=== PATIENT | female | born 1965 | race Caucasian/White ===

== ENCOUNTER → 2017-09-22 | Outpatient (CLI) | payer BC ==
[~2017-09-22] MED LIST: /AMLO25TA OR; /FENO48TA OR; ACET500C OR; ALLERGY MED OTC OR; ASPI1TAB PO; BACL10TA2 OR; DEPA500T OR; FISH300C2; FOLI1TAB OR; IBUP800T; LEVOTAB10 PO; LIDO5DIS TD; LOVA20TA2 PO; MONT10TA2 PO; NEUR100C OR; NORT10CA2 OR; PANT40TA2 PO; PARO20TA3 PO; PRIL20CA OR; RED YEAST RICE OR; SYNT150T OR; TRAM50TA2 OR; VITA200038 PO; WELCHOL OR
--- NOTE | 2017-09-22 12:59 | REP ---
BILATERAL MAMMOGRAM: COMPARISON: 01/03/2016 as well as multiple other prior studies. Family history of breast cancer in paternal grandmother. History of prior benign stereotactic biopsy 02/07/2016. Breast parenchyma is heterogeneously dense, limiting the sensitivity of the mammogram. There does appear to be a new 6-7 mm round nodule in the lateral left retroareolar region. Margins appear fairly smooth and well-defined. No other new mass is seen bilaterally. No clustered microcalcifications are seen bilaterally. IMPRESSION: BI-RADS/ACR category 0 mammogram, incomplete. Additional imaging and/or prior mammograms for comparison. Suspect new 6-7 mm nodule left lateral retroareolar region. Recommend spot compression views and ultrasound to further evaluate. Also using the Tyrer-Cuzick risk model, patient's life-time risk for breast cancer is 33.2%. Given the patient's heterogeneously dense breasts, I would strongly recommend supplemental MRI screening of the breasts. This mammogram was interpreted with the aid of an FDA-approved computer-aided detection system. A. Negative x-ray reports should not delay biopsy if a dominant or clinically suspicious mass is present. B. Four to eight percent of cancers are not identified by x-ray. C. Adenosis and dense breasts may obscure an underlying neoplasm. The patient states she/he had a clinical breast exam in September 2017. The patient letter being requested is M0.
== END ==
LOC: M WHC 10:41
PROVIDERS: ATTEND Nurse Practitioner Family
DX: Z12.31 Encounter for screening mammogram for malignant neoplasm of breast (principal); R92.8 Other abnormal and inconclusive findings on diagnostic imaging of breast

== ENCOUNTER → 2017-09-30 | Outpatient (CLI) | payer BC ==
--- NOTE | 2017-09-30 11:07 | REP ---
Digital diagnostic unilateral left breast mammography with CAD and focused left breast sonography: History: Screening mammography from September 22, 2017 BI-RADS category 0 because of a 6-7 mm nodular density laterally and retro areolarly the in the left breast. Diagnostic imaging was recommended. Patient with elevated lifetime breast cancer risk assessment by Tyrer-Cuzick risk model of 33%. Comparison is also made with January 03, 2016 prior mammography. Mammographic findings: Breast parenchyma is heterogeneously somewhat dense in a pattern which may inhibit the sensitivity of mammography. Nodularity persists in the retroareolar region of the left breast laterally on today's magnified focal spot compression CC, true ML, and MLO views. No spiculation or architectural distortion is seen. No worrisome skin changes seen. No suspicious microcalcification is observed. Sonographic findings: The left breast is scanned from 12 o'clock to 3 o'clock in the superior medial aspect in a retroareolar fashion. There is a band of heterogeneous fibroglandular background echotexture containing some dilated ducts. At 2 o'clock there is a 3 mm cyst. No mass lesion is seen. No architectural distortion or acoustic shadowing is observed. Impression: BI-RADS/ACR category 2 mammogram. Benign finding(s). Routine annual screening mammography (for women over age 40). BI-RADS category 2 benign left breast imaging. Annual screening mammography is recommended. In addition, because of the elevated lifetime risk assessment, this patient should undergo annual screening breast MRI scanning. MRI and mammography can be offset at 6-month intervals. This mammogram was interpreted with the aid of an FDA-approved computer-aided detection system. The patient states she/he had a clinical breast exam in September 2017. The patient letter being requested is m1 dense. Signed by Napoleon Dawn MD 09/30/2017 11:20 A
== END ==
LOC: M RAD 09:38
PROVIDERS: ATTEND Nurse Practitioner Family
DX: R92.8 Other abnormal and inconclusive findings on diagnostic imaging of breast (principal)

== ENCOUNTER → 2018-09-28 | Outpatient (REF) | payer BC | LOC: M SFHCWAGY 10:31 | DX: Z12.4 Encounter for screening for malignant neoplasm of cervix (principal) | CPT/HCPCS: G0123 ==

== ENCOUNTER → 2018-09-28 | Outpatient (CLI) | payer BC | LOC: M WHC 10:07 | DX: Z12.31 Encounter for screening mammogram for malignant neoplasm of breast (principal); Z80.3 Family history of malignant neoplasm of breast; N60.31 Fibrosclerosis of right breast; N60.32 Fibrosclerosis of left breast | CPT/HCPCS: 77067 ==

== ENCOUNTER → 2019-12-15 | Outpatient (CLI) | payer BC ==
[~2019-12-15] MED LIST changes: -/AMLO25TA OR; -/FENO48TA OR; -ASPI1TAB PO; +ASPI81TA26 PO; -MONT10TA2 PO; +MONT10TA4 PO; +NORV2TAB OR; -PANT40TA2 PO; +PANT40TA3 PO; +TRIC1TAB OR
--- NOTE | 2019-12-16 08:00 | REPMRS ---
Patient History The patient states she had a clinical breast exam in December 2019.Family history of breast cancer at age 50 or over in paternal grandmother. Benign radio exam breast specimen of the right breast, February 07, 2016. Benign stereotatic loc for ea lesion of the right breast, February 07, 2016. No Hormone Replacement Therapy Digital Woman Screen Mammo: December 15, 2019 - Exam #: [id number] Bilateral CC and MLO view(s) were taken. Technologist: Sandhya Rudd, Technologist Prior study comparison: September 28, 2018, bilateral digital woman screen mammo performed at [facility]. September 22, 2017, digital woman screen mammo performed at [facility]. August 19, 2016, right breast digital mammo diagnostic unilateral, performed at [facility]. FINDINGS: The breast tissue is heterogeneously dense. This may lower the sensitivity of mammography. There is a moderate amount of heterogeneously dense fibroglandular tissue which is fairly symmetric. There is no interval development of dominant mass, architectural distortion, or grouped microcalcification typical of malignancy. There has been no change in the appearance of the mammogram from the prior studies. 3-D tomosynthesis shows no additional findings. Assessment: BI-RADS/ACR category 1 mammogram. Negative Mammogram. Recommendation Routine screening mammogram of both breasts in 1 year (for women over age 40). This patient's Lifetime Breast Cancer RIsk is estimated at 17.6 %. This mammogram was interpreted with the aid of an FDA-approved computer-aided dectection system. Electronically Signed By: Ej Dawn MD 12/16/19 0800
== END ==
LOC: M WHC 15:12
PROVIDERS: ATTEND Nurse Practitioner Family
DX: Z12.31 Encounter for screening mammogram for malignant neoplasm of breast (principal); Z80.3 Family history of malignant neoplasm of breast

== ENCOUNTER → 2020-01-03 | Outpatient (CLI) | payer BC ==
--- NOTE | 2020-01-03 17:49 | REP ---
Pelvic sonography: History: Pelvic pain. Comparison pelvic sonography December 03, 2015. Findings: Transabdominal and transvaginal scanning are performed. Uterine dimensions are normal measured at 6.2 x 2.9 x 3.3 cm. Endometrial echo is 0.3 cm thick. Uterine texture is somewhat heterogeneous. No focal uterine mass is seen. There is evidence of a section uterine scar, unchanged. No free fluid is seen. Normal ovaries are seen. Right ovarian dimensions are 1.4 x 1.0 x 1.1 cm. Left ovary measures 1.8 x 0.9 x 1.4 cm. Impression: Post scar lower uterine segment. Otherwise no morphologic abnormality seen.
== END ==
LOC: M WHC 14:38
PROVIDERS: ATTEND Nurse Practitioner Family
DX: R10.2 Pelvic and perineal pain (principal)

== ENCOUNTER → 2020-08-07 | Outpatient (CLI) | payer BC ==
[~2020-08-07] MED LIST changes: +PANT40TA29 PO; -PANT40TA3 PO
--- NOTE | 2020-08-07 11:50 | ECWPNPC ---
PATIENT NAME: CEASAR DE LEON : 1965 GENDER: FEMALE VISIT DATE: 08/07/2020 DISCHARGE DATE: 08/07/20 1003 VISIT LOCKED DATE TIME: PHYSICIAN: DANITZA ACOSTA RESOURCE: DANITZA ACOSTA REASON FOR APPOINTMENT 1. THORACIC/LUMBAR PAIN HISTORY OF PRESENT ILLNESS DEPRESSION SCREENING: PHQ-9 LITTLE INTEREST OR PLEASURE IN DOING THINGSSEVERAL DAYS FEELING DOWN, DEPRESSED, OR HOPELESSSEVERAL DAYS TROUBLE FALLING OR STAYING ASLEEP, OR SLEEPING TOO MUCHNEARLY EVERY DAY FEELING TIRED OR HAVING LITTLE ENERGYNEARLY EVERY DAY POOR APPETITE OR OVEREATING NEARLY EVERY DAY FEELING BAD ABOUT YOURSELF-OR THAT YOU ARE A FAILURE OR HAVE LET YOURSELF OR YOUR FAMILY DOWN NOT AT ALL TROUBLE CONCENTRATING ON THINGS, SUCH READING THE NEWSPAPER OR WATCHING TELEVISION NEARLY EVERY DAY MOVING OR SPEAKING SO SLOWLY THAT OTHER PEOPLE COULD HAVE NOTICED. OR THE OPPOSITE- BEING SO FIDGETY OR RESTLESS THAT YOU HAVE BEEN MOVING AROUND A LOT MORE THAN USUALNOT AT ALL THOUGHTS THAT YOU WOULD BE BETTER OFF , OR OF HURTING YOURSELF IN SOME WAY?NOT AT ALL TOTAL SCORE:14 INTERPRETATIONMODERATE DEPRESSION PHQ-2 (2015 EDITION) LITTLE INTEREST OR PLEASURE IN DOING THINGS?NEARLY EVERY DAY FEELING DOWN, DEPRESSED, OR HOPELESS?MORE THAN HALF THE DAYS TOTAL SCORE5 GENERAL: 54 Y/O FEMALE WITH LONG HISTORY OF CHRONIC LOW BACK PAIN.PAIN HAS INCREASED OVER THE PAST FEW YEARS.HAS BENEFITED FROM [facility] IN PAST.LAST INJECTION WAS SEVERAL YEARS AGO.PAIN IS AGGREVATED WITH PROLONGED STANDING AND RELIEVED SOMEWHAT WITH REST AND HEAT.RATING PAIN VAS 8/10.DENIES ANY INJURIES.REVIEWED MRI L/S SPINE AND DISCUSSED TREATMENT OPTIONS. - - - - - - - -. FALL RISK SCREENING: SCREENING :NO FALLS REPORTED IN THE LAST YEAR PAIN SCREENING: PATIENT HAS A COMPLAINT OF ACUTE OR CHRONIC PAIN :NO NURSING NOTE: - - - - - - - -. PAIN CENTER INTAKE QUESTIONS: DO YOU HAVE A HISTORY OF MRSA? :NO DO YOU TAKE A BLOOD THINNERS? :NO DO YOU HAVE ANY BLEEDING DISORDERS? :NO ANY NEW NUMBNESS OR WEAKNESS IN YOUR LEGS OR ARMS? :NO ANY PACEMAKER,DEFIBRILLATOR, OR DORSAL COLUMN STIMULATOR? :NO DO YOU HAVE ANY RASHES OR OPEN SORES? :NO ARE YOU ALLERGIC TO IV DYE? :NO ARE YOU DIABETIC? :NO ANY NEW PROBLEMS WITH YOUR MEDICATIONS? :NO HAVE YOU RECEIVED A VACCINE IN THE PAST 30 DAYS? :NO DO YOU PLAN TO RECEIVE A VACCINE IN THE NEXT 21 DAYS? :YES IF SO WHAT VACCINE AND WHEN? FLU VACCINE DO YOU NEED ANY PRESCRIPTION? :NO DO YOU TAKE ANY IMMUNOSUPPRESSIVE MEDICATIONS? :NO CURRENT MEDICATIONS TAKING VITAMIN D 2000 UNIT TABLET OTC 1 TAB(S) ORALLY ONCE A DAY TAKING ACETAMINOPHEN 500 MG CAPSULE 1 CAPSULE NEEDED ORALLY NEEDED TAKING LEVOTHYROXINE SODIUM 100 MCG TABLET 1 TABLET EVERY MORNING ON AN EMPTY STOMACH ORALLY ONCE A DAY TAKING SYMBICORT 160-4.5 MCG/ACT AEROSOL 2 PUFFS INHALATION TWICE A DAY TAKING LOVASTATIN 40 MG TABLET 1 TABLET WITH A MEAL ORALLY ONCE A DAY TAKING PAROXETINE HCL 20 MG TABLET 1 TABLET IN THE MORNING ORALLY ONCE A DAY TAKING LEVOCETIRIZINE DIHYDROCHLORIDE 5 MG TABLET 1 TABLET IN THE EVENING ORALLY ONCE A DAY TAKING ASPIR-81 81 MG TABLET DELAYED RELEASE 1 TABLET ORALLY ONCE A DAY TAKING SPIRIVA HANDIHALER 18 MCG CAPSULE 1 CAPSULE BY INHALING THE CONTENTS OF THE CAPSULE USING THE HANDIHALER DEVICE INHALATION ONCE A DAY TAKING PANTOPRAZOLE SODIUM 40 MG TABLET DELAYED RELEASE 1 TABLET ORALLY BID TAKING ROPINIROLE HCL 0.25 MG TABLET 1 TABLET 1 TO 3 HOURS BEFORE BEDTIME ORALLY BID TAKING MELOXICAM 7.5 MG TABLET 1 TABLET ORALLY BID TAKING FOLIC ACID 1 MG TABLET 1 TABLET ORALLY ONCE A DAY NOT-TAKING SINGULAIR 10 MG TABLET 1 TAB(S) P.O. ONCE A DAY NOT-TAKING AMLODIPINE 2.5MG TABLET 1 TABLET ORAL ONCE A DAY NOT-TAKING CLEOCIN 2 % CREAM 1 APPLICATION AT BEDTIME VAGINAL TWICE A WEEK NOT-TAKING METRONIDAZOLE 500 MG TABLET 1 TABLET ORALLY BID NOT-TAKING CALCIUM 600 + D 600-400 MG-UNIT TABLET OTC 1 TABLET ORALLY ONCE A DAY NOT-TAKING LIDOCAINE 5 % PATCH 1 PATCH TO INTACT SKIN REMOVE AFTER 12 HOURS EXTERNALLY THREE TIMES A DAY NEEDED NOT-TAKING NABUMETONE 750 MG TABLET 1 TABLET ORALLY NEEDED NOT-TAKING LEXAPRO 10 20 MG TABLET 1 TAB(S) P.O. ONCE A DAY NOT-TAKING CLINDAMYCIN 300 MG 10D 300 MG TABLETS ONE TAB ORALLY TWICE A DAY NOT-TAKING DIFLUCAN 150 MG TABLET 1 TABLET ORALLY TAKE ONE AT START OF ANTIBIOTICS, MAY REPEAT 1 WK PRN NOT-TAKING SYDNI 180 MG TABLET 1 TAB(S) P.O. ONCE A DAY NOT-TAKING ADVAIR DISKUS 250-50 MCG/DOSE MISCELLANEOUS 1 PUFF INHALATION TWICE A DAY MEDICATION LIST REVIEWED AND RECONCILED WITH THE PATIENT PAST MEDICAL HISTORY HYPERCHOLESTEROLEMIA MIGRAINE HEADACHES HYPOTHYROIDISM ESOPHAGEAL REFLUX IRRITABLE BOWEL SYNDROME SCABIES 08/14 HX BLOOD CLOTS IN LEGS ANXIETY PERIMENOPAUSE FIBROCYSTIC BREAST DISEASE AAA 07/16 RECURRENT BV EMB 01/09/16 FOR AUB NORMAL ALLERGIES SULFA (FOR ALLERGY USE ONLY): RASH, ITCHING - ALLERGY SURGICAL HISTORY C SECTION 1992 TUBAL LIGATION 1995 CHOLECYSTECTOMY 01/1999 CARPAL TUNNEL RELEASE (RIGHT) D&C DUE TO MENORRHAGIA 06/2007 D&C AND HYSTEROSCOPY 06/2009 ANGIOPLASTY 2005 EGD/COLONOSCOPY (REINDL), POLYPS REMOVED, GERD, IBS DUE 2019 MESMENTIC BYPASS-ABDOMINAL AORTIC ANEURYSM REPAIR 07/10/2014 NECK SURGERY FUSION ORIF 2016 FAMILY HISTORY FATHER: 47 YRS, LUNG CANCER MOTHER: 80 YRS, LEUKOPENIA, DM, CML SIBLINGS: 42 YRS, BROTHER- OF STOMACH CANCER. ANOTHER BROTHER-BRAIN AND LUNG CANCER. TWO OTHER BROTHERS-COPD. ONE SISTER-LUNG CANCER W/METS TO BRAIN. TWO OTHER SISTERS-THYROID DISEASE. SISTER WITH ENDOMETRIAL CANCER AT 23 /REMAINING BROTHER, NO KNOWN MEDICAL PROBLEMS DAUGHTER(S): ALIVE, AGES 22,19 PATERNAL GRAND FATHER: PATERNAL GRAND MOTHER: , BREAST CANCER 5 BROTHER(S) , 3 SISTER(S) . 2DAUGHTER(S) - HEALTHY. DENIES COLON OR OVARIAN CANCERS. PGM, MGA BOTH , BREAST CANCER.2 BROTHERS , 1 SISTER . SOCIAL HISTORY GENERAL: TOBACCO USE ARE YOU A:CURRENT SMOKER ARE YOU INTERESTED IN QUITTING?NOT READY TO QUIT COUNSELED THE PATIENT ON SMOKING EFFECTS, EDUCATION [id number]/2020 HOW MANY CIGARETTES A DAY DO YOU SMOKE?11-20 HOW SOON AFTER YOU WAKE UP DO YOU SMOKE YOUR FIRST CIGARETTE?WITHIN 5 MIN HOW OFTEN DO YOU SMOKE CIGARETTES?EVERY DAY PATIENT COUNSELED ON THE DANGERS OF TOBACCO USE AND URGED TO QUIT:08/06/2020 LATEX QUESTIONNAIRE LATEX ALLERGY : HAVE YOU EVER DEVELOPED ANY TYPE OF REACTION AFTER HANDLING LATEX PRODUCTS SUCH RUBBER GLOVES, CONDOMS, DIAPHRAGMS, BALLOONS, SOCKS, OR UNDERWEAR?NO LATEX ALLERGY : HAVE YOU EVER DEVELOPED ANY TYPE OF REACTION DURING OR AFTER DENTAL APPOINTMENT, VAGINAL/RECTAL EXAMINATION, SURGICAL PROCEDURE, OR ANY OTHER EXPOSURE?NO LATEX RISK : HAVE YOU EVER HAD ANY DIFFICULTY BREATHING OR HIVES AFTER EATING OR HANDLING ANY FRUITS, OR VEGETABLES; SUCH KIWI, BANANAS, STONE FRUITS, OR CHESTNUTSNO LATEX RISK : DO YOU HAVE A PREVIOUS PERSONAL HISTORY OF MORE THAN NINE SURGERIES, SPINA BIFIDA, OR REPEATED CATHERIZATIONS? NO LATEX RISK : ARE YOU FREQUENTLY EXPOSED TO LATEX PRODUCTS IN YOUR OCCUPATION?NO DATE ASKED : 08/06/2020 ALCOHOL SCREENING DID YOU HAVE A DRINK CONTAINING ALCOHOL IN THE PAST YEAR?YES HOW OFTEN DID YOU HAVE A DRINK CONTAINING ALCOHOL IN THE PAST YEAR?TWO TO FOUR TIMES A MONTH (2 POINTS) HOW MANY DRINKS DID YOU HAVE ON A TYPICAL DAY WHEN YOU WERE DRINKING IN THE PAST YEAR?5 OR 6 (2 POINTS) HOW OFTEN DID YOU HAVE SIX OR MORE DRINKS ON ONE OCCASION IN THE PAST YEAR?LESS THAN MONTHLY (1 POINT) POINTS5 INTERPRETATIONPOSITIVE RECREATIONAL DRUG USE DENIES. CAFFEINE 5-6/DAY. HIV / HEP-C SCREENING HIV TEST OFFERED TO PATIENT:YES DATE OFFERED:09/22/2017 TEST ACCEPTED:NO HEP-C TEST OFFERED TO PATIENT:NO REASON:PATIENT DECLINED ALEVISM [id number] CONGREGATIONAL LANGUAGE LANGUAGES SPOKEN:CROATIAN EDUCATION LEVEL OF EDUCATION:HIGH SCHOOL GED LEARNING BARRIERS / SPECIAL NEEDS CHANGE FROM LAST VISIT?NO BARRIERS TO LEARNING?NO HEARING IMPAIRED?NO VISION IMPAIRED?YES COGNITIVELY IMPAIRED?NO :CORRECTIVE LENSES READINESS TO LEARN?YES LEARNING PREFERENCES?NO LEARNING CAPABILITIES PRESENT?YES EMOTIONAL BARRIERS?NO SPECIAL DEVICES?NO APPRENTICE PLANT ATTENDANT NEEDED?NO DOMESTIC VIOLENCE DENIES; 01/04/15 HITS SCORE=4. 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 DIET: REGULAR, NO EATING DISORDERS. EXERCISE: NO REGULAR EXERCISE. MARITAL STATUS: X 15 YRS, TOGETHER 24 YRS. OTHERS AT HOME: SPOUSE. HOSPITALIZATION/MAJOR DIAGNOSTIC PROCEDURE SURGERIES REVIEW OF SYSTEMS CONSTITUTIONAL: ANY RECENT FEVER NO, NO . CHILLS NO, NO . WEIGHT CHANGE OF UNKNOWN REASONS NO, NO . MUSCULOSKELETAL: ANY UNUSUAL JOINT PAIN OR SWELLING NOT MENTIONED NO, NO . SYSTEMIC LUPUS NO, NO . ANY NEUROMUSCULAR DISORDER NOT MENTIONED NO, NO . LYME DISEASE NO, NO . GASTROENTEROLOGY: ANY NEW CHANGE IN BOWEL CONTROL? NO, NO . HISTORY OF LIVER DISORDER NOT MENTIONED NO, NO . HISTORY OF UNUSUAL ABDOMINAL PAIN OR CRAMPING NOT MENTIONED NO, NO . NO CONSTIPATION. GENITOURINARY: ANY NEW CHANGE IN BLADDER CONTROL? NO, NO . ANY RENAL/KIDNEY CONDITON NOT MENTIONED NO, NO . NEUROLOGY: HISTORY OF TBI NOT MENTIONED NO, NO . OTHER NEW NUMBNESS OR PAIN PATTERNS NOT MENTIONED NO, NO . NEW ONSET DIZZINESS OR NEUROLOGICAL CHANGES NOT MENTIONED NO, NO . HISTORY OF SEVERE HEADACHES NOT MENTIONED NO, NO . HISTORY OF STROKE OR NEUROLOGICAL DISORDER NOT MENTIONED NO, NO . CARDIOLOGY: HEART SURGERY NO, NO . CONGESTIVE HEART FAILURE/FLUID OVERLOAD NOT MENTIONED NO, NO . HISTORY OF CHEST PAIN,IRREGULAR HEART BEAT NOT MENTIONED NO, NO . RESPIRATORY: SHORTNESS OF BREATH ON EXERTION, WHEEZES, UNUSUAL COUGH NOT MENTIONED NO, NO . ENDOCRINOLOGY: ADRENAL GLAND OR THYROID DISORDERS NOT MENTIONED NO, NO . UNUSUAL URINATION, DIZZINESS OR LETHARGY NOT MENTIONED NO, NO . VITAL SIGNS WT 159.8 LBS, HT 63.5 IN, BMI 27.86 INDEX, BP 123/60 MM HG, HR 84 /MIN, RR 18 /MIN, TEMP 97.5 F, OXYGEN SAT % 98%, NA INITIALS AW 0854. EXAMINATION GENERAL EXAMINATION: GENERAL AWAKE,ALERT ,PLEASANT . PSYCH AFFECT NORMAL . NECK: TRACHEA MIDLINE. NO CERVICAL OR SUPRACLAVICULAR LYMPHADENOPATHY NOTED. LUNGS: LUNG REYNOLDS ARE CLEAR TO AUSCULTATION BILATERALLY. GOOD MOVEMENT OF AIR . HEART: S1, S2 IN A REGULAR RATE AND RHYTHM. NO SIGNIFICANT MURMURS, RUBS OR GALLOPS NOTED . ABDOMEN: SOFT/NONTENDER. MUSCULOSKELETAL: MUSCLE STRENGTH TESTING 5/5 BILATERAL UPPER/LOWER EXTREMITIES. LUMBAR: PALPATION: NEGATIVE FOR PAIN OVER L/S SPINE. SMALL AMPOUNT OF PAIN RIGHT LOW BACK , TRIGGER POINTS:, ELICITED WITH PALPATION OVER MID THORACIC MUSCLES.. CERVICAL: NEGATIVE FOR PAIN WITH PALPATION OF CERVICAL SPINE. NEGATIVE FOR PAIN WITH PALPATION OF CERVICAL PARASPINALS. NEGATIVE FOR PAIN WITH PALPATION OF TRAPEZIUS BILAT. SKIN: NO RASH OR SKIN LESIONS. NEUROLOGIC EXAM: CN'S NORMAL TESTED , DTRS 1-2+ IN ALL 4 EXTREMITIES. DIAGNOSTIC TESTS REVIEWED MRI L/S SPINE-01/2020 MRI THORACIC SPINE-01/2020. 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 PROCEDURE CODES FA211 ESTABILISHED PATIENT CONGREGATION FACILITY CHARGE DISPOSITION & COMMUNICATION FOLLOW UP POST PROCEDURE (REASON: L4/5 LESI) ELECTRONICALLY SIGNED BY DEBORA ALY ON 08/07/2020 AT 11:48 AM EDT DISCLAIMER : THIS IS A VISIT SUMMARY EXTRACTED FROM THE [employer] CHART. IT IS NOT A COPY OF THE [employer] PROGRESS NOTE. [place]
== END ==
LOC: M PAIN 08:30
PROVIDERS: ATTEND Nurse Practitioner Family
DX: M51.26 Other intervertebral disc displacement, lumbar region (principal); M47.814 Spondylosis without myelopathy or radiculopathy, thoracic region; G89.29 Other chronic pain; E78.00 Pure hypercholesterolemia, unspecified; G43.909 Migraine, unspecified, not intractable, without status migrainosus; E03.9 Hypothyroidism, unspecified; K21.9 Gastro-esophageal reflux disease without esophagitis; F17.210 Nicotine dependence, cigarettes, uncomplicated; Z86.59 Personal history of other mental and behavioral disorders; Z88.2 Allergy status to sulfonamides; Z79.82 Long term (current) use of aspirin; Z79.899 Other long term (current) drug therapy

== ENCOUNTER → 2020-08-10 | Outpatient (CLI) | payer BC | LOC: M LABSMTC 13:04 | PROVIDERS: ATTEND Anesthesiology | DX: Z20.828 Contact with and (suspected) exposure to other viral communicable diseases (principal) | CPT/HCPCS: C9803; U0003 ==

== ENCOUNTER → 2020-08-15 | Outpatient (CLI) | payer BC ==
[~2020-08-15] MED LIST changes: +ISOVUE-M 300 61% 15ML VIAL As Ordered ONE; +LIDOCAINE 1% SDV 30ML VIAL As Ordered ONE; +diazePAM 5 MG TAB As Ordered ONE; +methylPREDNISolone SUSP 40MG/ML 1ML VIAL (DEPO MEDROL) As Ordered ONE; +oxyCODONE 5MG TAB As Ordered ONE
--- NOTE | 2020-08-15 15:16 | REP ---
INDICATION: LUMBAR EPIDURAL STEROID INJECTION pain. COMPARISON: No comparison study.. TECHNIQUE: . Three views. FINDINGS: A sequence of 3 last image hold fluoroscopically obtained spot radiographs of the lumbar spine document needle position and contrast injection associated with injection procedure. IMPRESSION: Procedural imaging lumbar spine. <Electronically signed by Ej Dawn > 08/15/20 [id number]
--- NOTE | 2020-08-16 23:29 | ECWPNPC ---
PATIENT NAME: CEASAR DE LEON : 1965 GENDER: FEMALE VISIT DATE: 08/15/2020 DISCHARGE DATE: 08/15/20 1435 VISIT LOCKED DATE TIME: PHYSICIAN: JIMMY CANAS MD RESOURCE: JIMMY CANAS MD REASON FOR APPOINTMENT 1. LESI L5-S1 HISTORY OF PRESENT ILLNESS GENERAL: -. FALL RISK SCREENING: SCREENING :NO FALLS REPORTED IN THE LAST YEAR PAIN SCREENING: PATIENT HAS A COMPLAINT OF ACUTE OR CHRONIC PAIN :YES LOCATION OF PAIN:LOW BACK INTENSITY OF PAIN (SCALE OF 1 TO 10):5 AVERAGE 10 OR HIGHER WHAT DOES YOUR PAIN FEEL LIKE:ACHING, CONTINOUS, TENDER, SORE, SHOOTING, OTHER "STEADY" DURATION:CONTINOUS, CONSTANT, AWAKENS FROM SLEEP SOMETIMES WAKES HER AT NIGHT PAIN IS INCREASED BY:ACTIVITIES, PROLONGED STANDING PAIN IS DECREASED BY:OTHERS REST, HEAT PAIN HAS INTERFERED WITH THE FOLLOWING: PRETTY MUCH EVERYTHING NURSING NOTE: -. PAIN CENTER INTAKE QUESTIONS: DO YOU HAVE A HISTORY OF MRSA? :NO DO YOU TAKE A BLOOD THINNERS? :NO DO YOU HAVE ANY BLEEDING DISORDERS? :NO ANY NEW NUMBNESS OR WEAKNESS IN YOUR LEGS OR ARMS? :NO ANY PACEMAKER,DEFIBRILLATOR, OR DORSAL COLUMN STIMULATOR? :NO DO YOU HAVE ANY RASHES OR OPEN SORES? :NO ARE YOU ALLERGIC TO IV DYE? :NO ARE YOU DIABETIC? :NO ANY NEW PROBLEMS WITH YOUR MEDICATIONS? :NO HAVE YOU RECEIVED A VACCINE IN THE PAST 30 DAYS? :NO DO YOU PLAN TO RECEIVE A VACCINE IN THE NEXT 21 DAYS? :YES IF SO WHAT VACCINE AND WHEN? PLANS ON GETTING FLU SHOT-ADVISED TO WAIT 3 WEEKS FROM INJECTION DATE DO YOU TAKE ANY IMMUNOSUPPRESSIVE MEDICATIONS? :NO ANY HISTORY OF SEIZURES? :NO ANY HISTORY OF CARDIAC ISSUES OR EVENTS? :YES AAA DO YOU HAVE SLEEP APNEA? :NO ANY RECENT HEAD INJURY? :NO DO YOU HAVE ANY NEW INFECTIONS? :NO IS THERE A CHANCE YOU COULD BE ? :NO ARE YOU BREAST FEEDING? :NO WHEN DID YOU LAST EAT? : 08/14 2200 WHEN DID YOU LAST DRINK? : 08/15 845 WHAT DID YOU LAST DRINK? : BLACK COFFEE NAME OF PERSON DRIVING YOU HOME? : JON DO YOU HAVE ANY OTHER QUESTIONS OR CONCERNS? : NONE CURRENT MEDICATIONS TAKING VITAMIN D 2000 UNIT TABLET OTC 1 TAB(S) ORALLY ONCE A DAY, NOTES: 08/15 830 TAKING ACETAMINOPHEN 500 MG CAPSULE 1 CAPSULE NEEDED ORALLY NEEDED, NOTES: NONE RECENT TAKING LEVOTHYROXINE SODIUM 100 MCG TABLET 1 TABLET EVERY MORNING ON AN EMPTY STOMACH ORALLY ONCE A DAY, NOTES: 08/15 830 TAKING SYMBICORT 160-4.5 MCG/ACT AEROSOL 2 PUFFS INHALATION TWICE A DAY, NOTES: 08/15 830 TAKING LOVASTATIN 40 MG TABLET 1 TABLET WITH A MEAL ORALLY ONCE A DAY, NOTES: 08/14 2300 TAKING PAROXETINE HCL 20 MG TABLET 1 TABLET IN THE MORNING ORALLY ONCE A DAY, NOTES: 08/15 830 TAKING LEVOCETIRIZINE DIHYDROCHLORIDE 5 MG TABLET 1 TABLET IN THE EVENING ORALLY ONCE A DAY, NOTES: 08/14 2300 TAKING ASPIR-81 81 MG TABLET DELAYED RELEASE 1 TABLET ORALLY ONCE A DAY, NOTES: 08/15 830 TAKING SPIRIVA HANDIHALER 18 MCG CAPSULE 1 CAPSULE BY INHALING THE CONTENTS OF THE CAPSULE USING THE HANDIHALER DEVICE INHALATION ONCE A DAY, NOTES: 08/14 830 TAKING PANTOPRAZOLE SODIUM 40 MG TABLET DELAYED RELEASE 1 TABLET ORALLY BID, NOTES: 08/14 1800 TAKING ROPINIROLE HCL 0.25 MG TABLET 1 TABLET 1 TO 3 HOURS BEFORE BEDTIME ORALLY BID, NOTES: 08/14 2300 TAKING MELOXICAM 7.5 MG TABLET 1 TABLET ORALLY BID, NOTES: 08/14 2000 TAKING FOLIC ACID 1 MG TABLET 1 TABLET ORALLY ONCE A DAY, NOTES: 08/15 830 NOT-TAKING SINGULAIR 10 MG TABLET 1 TAB(S) P.O. ONCE A DAY NOT-TAKING AMLODIPINE 2.5MG TABLET 1 TABLET ORAL ONCE A DAY NOT-TAKING CLEOCIN 2 % CREAM 1 APPLICATION AT BEDTIME VAGINAL TWICE A WEEK NOT-TAKING METRONIDAZOLE 500 MG TABLET 1 TABLET ORALLY BID NOT-TAKING CALCIUM 600 + D 600-400 MG-UNIT TABLET OTC 1 TABLET ORALLY ONCE A DAY NOT-TAKING LIDOCAINE 5 % PATCH 1 PATCH TO INTACT SKIN REMOVE AFTER 12 HOURS EXTERNALLY THREE TIMES A DAY NEEDED NOT-TAKING NABUMETONE 750 MG TABLET 1 TABLET ORALLY NEEDED NOT-TAKING LEXAPRO 10 20 MG TABLET 1 TAB(S) P.O. ONCE A DAY NOT-TAKING CLINDAMYCIN 300 MG 10D 300 MG TABLETS ONE TAB ORALLY TWICE A DAY NOT-TAKING DIFLUCAN 150 MG TABLET 1 TABLET ORALLY TAKE ONE AT START OF ANTIBIOTICS, MAY REPEAT 1 WK PRN NOT-TAKING SYDNI 180 MG TABLET 1 TAB(S) P.O. ONCE A DAY NOT-TAKING ADVAIR DISKUS 250-50 MCG/DOSE MISCELLANEOUS 1 PUFF INHALATION TWICE A DAY MEDICATION LIST REVIEWED AND RECONCILED WITH THE PATIENT PAST MEDICAL HISTORY HYPERCHOLESTEROLEMIA MIGRAINE HEADACHES HYPOTHYROIDISM ESOPHAGEAL REFLUX IRRITABLE BOWEL SYNDROME SCABIES 08/14 HX BLOOD CLOTS IN LEGS ANXIETY PERIMENOPAUSE FIBROCYSTIC BREAST DISEASE AAA 07/16 RECURRENT BV EMB 01/09/16 FOR AUB NORMAL LOW BACK PAIN ALLERGIES SULFA (FOR ALLERGY USE ONLY): RASH, ITCHING - ALLERGY SURGICAL HISTORY C SECTION 1992 TUBAL LIGATION 1995 CHOLECYSTECTOMY 01/1999 CARPAL TUNNEL RELEASE (RIGHT) D&C DUE TO MENORRHAGIA 06/2007 D&C AND HYSTEROSCOPY 06/2009 ANGIOPLASTY 2005 EGD/COLONOSCOPY (REINDL), POLYPS REMOVED, GERD, IBS DUE 2019 MESMENTIC BYPASS-ABDOMINAL AORTIC ANEURYSM REPAIR 07/10/2014 NECK SURGERY FUSION ORIF 2016 FAMILY HISTORY FATHER: 47 YRS, LUNG CANCER MOTHER: 80 YRS, LEUKOPENIA, DM, CML SIBLINGS: 42 YRS, BROTHER- OF STOMACH CANCER. ANOTHER BROTHER-BRAIN AND LUNG CANCER. TWO OTHER BROTHERS-COPD. ONE SISTER-LUNG CANCER W/METS TO BRAIN. TWO OTHER SISTERS-THYROID DISEASE. SISTER WITH ENDOMETRIAL CANCER AT 23 /REMAINING BROTHER, NO KNOWN MEDICAL PROBLEMS DAUGHTER(S): ALIVE, AGES 22,19 PATERNAL GRAND FATHER: PATERNAL GRAND MOTHER: , BREAST CANCER 5 BROTHER(S) , 3 SISTER(S) . 2DAUGHTER(S) - HEALTHY. DENIES COLON OR OVARIAN CANCERS. PGM, MGA BOTH , BREAST CANCER.2 BROTHERS , 1 SISTER . SOCIAL HISTORY GENERAL: TOBACCO USE ARE YOU A:CURRENT SMOKER ARE YOU INTERESTED IN QUITTING?NOT READY TO QUIT COUNSELED THE PATIENT ON SMOKING EFFECTS, EDUCATION [id number]/05/2020 HOW MANY CIGARETTES A DAY DO YOU SMOKE?11-20 HOW SOON AFTER YOU WAKE UP DO YOU SMOKE YOUR FIRST CIGARETTE?WITHIN 5 MIN HOW OFTEN DO YOU SMOKE CIGARETTES?EVERY DAY PATIENT COUNSELED ON THE DANGERS OF TOBACCO USE AND URGED TO QUIT:08/15/2020 LATEX QUESTIONNAIRE LATEX ALLERGY : HAVE YOU EVER DEVELOPED ANY TYPE OF REACTION AFTER HANDLING LATEX PRODUCTS SUCH RUBBER GLOVES, CONDOMS, DIAPHRAGMS, BALLOONS, SOCKS, OR UNDERWEAR?NO LATEX ALLERGY : HAVE YOU EVER DEVELOPED ANY TYPE OF REACTION DURING OR AFTER DENTAL APPOINTMENT, VAGINAL/RECTAL EXAMINATION, SURGICAL PROCEDURE, OR ANY OTHER EXPOSURE?NO LATEX RISK : HAVE YOU EVER HAD ANY DIFFICULTY BREATHING OR HIVES AFTER EATING OR HANDLING ANY FRUITS, OR VEGETABLES; SUCH KIWI, BANANAS, STONE FRUITS, OR CHESTNUTSNO LATEX RISK : DO YOU HAVE A PREVIOUS PERSONAL HISTORY OF MORE THAN NINE SURGERIES, SPINA BIFIDA, OR REPEATED CATHERIZATIONS? NO LATEX RISK : ARE YOU FREQUENTLY EXPOSED TO LATEX PRODUCTS IN YOUR OCCUPATION?NO DATE ASKED : 08/15/2020 ALCOHOL SCREENING DID YOU HAVE A DRINK CONTAINING ALCOHOL IN THE PAST YEAR?YES HOW OFTEN DID YOU HAVE SIX OR MORE DRINKS ON ONE OCCASION IN THE PAST YEAR?LESS THAN MONTHLY (1 POINT) HOW MANY DRINKS DID YOU HAVE ON A TYPICAL DAY WHEN YOU WERE DRINKING IN THE PAST YEAR?5 OR 6 (2 POINTS) HOW OFTEN DID YOU HAVE A DRINK CONTAINING ALCOHOL IN THE PAST YEAR?TWO TO FOUR TIMES A MONTH (2 POINTS) POINTS5 INTERPRETATIONPOSITIVE RECREATIONAL DRUG USE DENIES. CAFFEINE 5-6/DAY. 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 DIET: REGULAR, NO EATING DISORDERS. EXERCISE: NO REGULAR EXERCISE. MARITAL STATUS: X 15 YRS, TOGETHER 24 YRS. OTHERS AT HOME: SPOUSE. PAIN CLINIC PFS, CLERGY, PUBLIC HEALTH REFERRALS HAS THE PATIENT BEEN EDUCATED REGARDING HIS/HER PLAN OF CARE?YES HAS THE PATIENT BEEN EDUCATED REGARDING PAIN, THE RISK FOR PAIN, THE IMPORTANCE OF EFFECTIVE PAIN MANAGEMENT, AND THE PAIN ASSESSMENT PROCESS?YES ADVANCE DIRECTIVE ADVANCE DIRECTIVE DISCUSSED WITH PATIENT:YES PT STATES SHE HAS A HCP- ANA [phone] HOSPITALIZATION/MAJOR DIAGNOSTIC PROCEDURE SURGERIES VITAL SIGNS WT 160.0 LBS, HT 63.5 IN, BMI 27.90 INDEX, BP 120/56 MM HG, HR 79 /MIN, RR 18 /MIN, TEMP 97.9 F, OXYGEN SAT % 98%, SAFE IN ENV? (Y/N) Y, NA INITIALS AW 1126, REVIEWED BY: EVELINA. EXAMINATION GENERAL EXAMINATION: THE PATIENT IS ALERT, ORIENTED TIMES THREE AND COOPERATIVE. HEART SHOWS REGULAR RHYTHM, NO MURMURS AND NO GALLOPS. LUNGS ARE CLEAR TO AUSCULTATION. ASSESSMENTS INTERVERTEBRAL DISC DISORDERS WITH RADICULOPATHY, LUMBOSACRAL REGION - M51.17 (PRIMARY) INTERVERTEBRAL DISC DISORDERS WITH RADICULOPATHY, LUMBAR REGION - M51.16 TREATMENT INTERVERTEBRAL DISC DISORDERS WITH RADICULOPATHY, LUMBAR REGION [facility] FLUORO GUIDE SPINE INJECTION (PAIN)[id number] MEDICATION: VALIUM TAB 5MG ORALLY (DIAZEPAM)KARYNA ABDI 08/15/2020 1:23:30 PM > VERIFIED BRAXTONGAVIN 08/15/2020 1:25:18 PM > LOT # [id number] EXP. 12/2020 ADMINISTERED MEDICATION: OXYCODONE HCL TAB 5MG ORALLY KARYNA ABDI 08/15/2020 1:23:50 PM > VERIFIED BRAXTONGAVIN 08/15/2020 1:26:11 PM > LOT # [id number] EXP. 12/2021 ADMINISTERED SALINE LOCKDEJOSSELYNGAVIN 08/15/2020 1:53:04 PM > STARTED AT 1340 PROCEDURES PAIN NURSING RECORD PRE-PROCEDURE IV SITE LEFT ANTECUBITAL SALINE LOCK, IV STARTED # 20, IV STARTED BY: Brittney LIMON RN, IV ATTEMPTS 2, PRE-PROCEDURE ORAL MEDICATIONS SEE MEDICATION RECORD PROCEDURE IN ROOM 1345, PHYSICIAN IN ROOM 1354, START 1400, FINISH 1407, PHYSICIAN OUT OF ROOM 1408, OUT OF ROOM 1417, STEROID DEPOMEDROL, O2 RA, ECG NORMAL SINUS, PATIENT SHIELDED YES, SAFETY STRAP YES, PREP BETADINE BY Alireza FERRARO RN, IV INFUSED N/A, DRESSING TEGADERM BY DR. CANAS LOC: BRAXTONGAVIN 08/15/2020 1:41:34 PM > 1. ALERT, ORIENTED RESP: GAVIN LIMON 08/15/2020 1:41:37 PM > 1. REGULAR, NO DYSPNEA COLOR: GAVIN LIMON 08/15/2020 1:41:40 PM > 1. PINK SKIN: GAVIN LIMON 08/15/2020 1:41:43 PM > 1. WARM, DRY POSITION: GAVIN LIMON 08/15/2020 1:45:28 PM > 1. PRONE VITALS: GAVIN LIMON 08/15/2020 1:47:33 PM > 139/65,68,16, 100% GAVIN LIMON 08/15/2020 2:00:14 PM > 138/65,77,16, 99% GAVIN LIMON 08/15/2020 2:13:25 PM > 128/60,74,16, 99% DISCHARGE: POST PAIN 0, DRESSING SITE DRY AND INTACT, IV DISCONTINUED, SITE CLEAR, CATHETER INTACT, GAIT STEADY, TEACHING COMPLETED, PATIENT ACKNOWLEDGES UNDERSTANDING YES, PATIENT DISCHARGED AT 1430 PRE PROCEDURE DIAGNOSIS LUMBOSACRAL DISC DISORDER WITH RADICULOPATHY POST PROCEDURE DIAGNOSIS LUMBOSACRAL DISC DISORDER WITH RADICULOPATHY PROCEDURE LUMBAR EPIDURAL STEROID INJECTION UNDER FLUOROSCOPIC GUIDANCE SURGEON DR. JIMMY CANAS COLLECTIONS CURATOR NONE ANESTHESIA LOCAL PRE PROCEDURE NOTE THE PATIENT HAS A HISTORY OF CHRONIC LOW BACK PAIN. I EVALUATED THE PATIENT AND REVIEWED THE CHART. I WENT OVER THE RISKS, ALTERNATIVES, AND BENEFITS ASSOCIATED WITH THIS PROCEDURE. I DISCUSSED THAT THE USE OF STEROIDS MAY CONTRIBUTE TO IMMUNOSUPPRESSION OF THE PATIENT'S BODY AGAINST INFECTIONS SUCH COVID-19. THE PATIENT IS AWARE OF THE POTENTIAL COMPLICATIONS ASSOCIATED WITH THIS VIRUS, INCLUDING, BUT NOT LIMITED TO, . THE PATIENT WOULD LIKE TO PROCEED AND GIVE CONSENT TO PERFORMED THE PROCEDURE. THE PATIENT DENIES UNEXPLAINABLE WEIGHT LOSS, FEVER, CHILLS, OR NEW CHANGES IN URINARY OR BOWEL CONTROL. THE PATIENT IS COVID-19 NEGATIVE DESCRIPTION OF PROCEDURE THE PATIENT WAS BROUGHT TO THE PROCEDURE ROOM AND PLACED IN THE PRONE POSITION. THE LUMBOSACRAL AREA WAS CLEANED WITH BETADINE SOLUTION AND DRAPED ASEPTICALLY. THE PROCEDURE WAS DONE UNDER STERILE CONDITIONS. A TIMEOUT WAS PERFORMED WHERE LATERALITY AND THE SITE OF THE PROCEDURE WERE CHECKED AND CONFIRMED WITH EVERYONE IN THE ROOM. UNDER FLUOROSCOPIC GUIDANCE, THE TARGET POINT WAS SELECTED AT THE INTERLAMINAR LEVEL OF L5-S1. I CONFIRMED AGAIN WITH EVERYONE IN THE ROOM THE LATERALITY OF THE TARGET AT 1401. LIDOCAINE WAS USED TO NUMB THE SKIN AND THE SUBCUTANEOUS TISSUE BELOW IT. EPIDURAL TUOHY NEEDLE, 17-GAUGE, WAS ADVANCED UNDER FLUOROSCOPIC GUIDANCE AND FOLLOWING PATIENT FEEDBACK UNTIL THE EPIDURAL SPACE WAS REACHED 8 CM DEEP INTO THE SKIN BY THE LOSS OF RESISTANCE TECHNIQUE. ISOVUE-M DYE 30%, 0.25 ML, WAS INJECTED SHOWING ADEQUATE SPREAD OF THE DYE. THEN, A SOLUTION OF 3 ML OF NORMAL SALINE WITH DEPO-MEDROL 80 MG WAS INJECTED SLOWLY FOLLOWING PATIENT FEEDBACK. THE MEDICATIONS WERE VERIFIED WITH THE NURSE. THERE WAS NO EVIDENCE OF BLOOD, PARESTHESIA OR CEREBROSPINAL FLUID DURING THE PROCEDURE. THE PATIENT WAS SENT TO THE RECOVERY ROOM. THE PATIENT WAS MOVING THE EXTREMITIES AND DOING WELL. THERE WERE NO COMPLICATIONS DURING THE PROCEDURE. ESTIMATED BLOOD LOSS WAS LESS THAN 5 ML. FLUOROSCOPY TIME WAS 13 SECONDS POST PROCEDURE NOTE DEPENDING ON THE RESULTS, CONSIDER A FACET BLOCK. THE PATIENT WILL BE SEEN IN A FOLLOW UP IN THE NEXT FEW WEEKS. I AM LOOKING FOR LONG LASTING RELIEF FOR THE PATIENT WITH THIS INTERVENTION. INSTRUCTIONS WERE GIVEN, QUESTIONS WERE ANSWERED, AND THE PATIENT EXPRESSED UNDERSTANDING AND AGREES WITH THE PLAN. I, ISAAK SINGH, DOCUMENTED THE ABOVE INFORMATION ACTING A SCRIBE FOR DR. CANAS. I HAVE REVIEWED THE ABOVE DOCUMENT, WRITTEN BY ISAAK SINGH, STOCK CAR DRIVER, AND I VERIFY THAT IT IS ACCURATE PROCEDURE CODES 92453 LUMBAR/SACRAL W/ IMAGING DISPOSITION & COMMUNICATION FOLLOW UP FOLLOW UP WITH BARK GRINDER (REASON: POST LESI L5-S1) ELECTRONICALLY SIGNED BY JIMMY CANAS MD, MD ON 08/16/2020 AT 02:49 PM EDT DISCLAIMER : THIS IS A VISIT SUMMARY EXTRACTED FROM THE [employer] CHART. IT IS NOT A COPY OF THE [employer] PROGRESS NOTE. MTDKelechi
== END ==
LOC: M PAIN 11:00
PROVIDERS: ATTEND Anesthesiology
DX: M51.17 Intervertebral disc disorders with radiculopathy, lumbosacral region (principal); M51.16 Intervertebral disc disorders with radiculopathy, lumbar region; E78.5 Hyperlipidemia, unspecified; G43.909 Migraine, unspecified, not intractable, without status migrainosus; E03.9 Hypothyroidism, unspecified; K21.9 Gastro-esophageal reflux disease without esophagitis; K58.9 Irritable bowel syndrome, unspecified; F41.9 Anxiety disorder, unspecified; F17.210 Nicotine dependence, cigarettes, uncomplicated; Z79.1 Long term (current) use of non-steroidal anti-inflammatories (NSAID); Z79.82 Long term (current) use of aspirin; Z79.899 Other long term (current) drug therapy; Z88.2 Allergy status to sulfonamides
CPT/HCPCS: 62323; J1030; Q9967

== ENCOUNTER → 2020-08-29 | Outpatient (CLI) | payer BC ==
[~2020-08-29] MED LIST changes: -ISOVUE-M 300 61% 15ML VIAL As Ordered ONE; -LIDOCAINE 1% SDV 30ML VIAL As Ordered ONE; -diazePAM 5 MG TAB As Ordered ONE; -methylPREDNISolone SUSP 40MG/ML 1ML VIAL (DEPO MEDROL) As Ordered ONE; -oxyCODONE 5MG TAB As Ordered ONE
--- NOTE | 2020-09-04 01:26 | ECWPNPC ---
PATIENT NAME: CEASAR DE LEON : 1965 GENDER: FEMALE VISIT DATE: 08/29/2020 DISCHARGE DATE: 08/29/20939 VISIT LOCKED DATE TIME: PHYSICIAN: DANITZA ACOSTA RESOURCE: DANITZA ACOSTA REASON FOR APPOINTMENT 1. POST LESI L5-S1 HISTORY OF PRESENT ILLNESS DEPRESSION SCREENING: PHQ-2 (2015 EDITION) LITTLE INTEREST OR PLEASURE IN DOING THINGS?NOT AT ALL FEELING DOWN, DEPRESSED, OR HOPELESS?NOT AT ALL TOTAL SCORE0 GENERAL: HERE FOR POST PROCEDURE FOLLOW-UP. HAD L5-S1 LESI ON 08/15/2020. REPORTING MARKED REDUCTION IN PAIN POST PROCEDURE. UNFORTUNATELY SHE FELL ON HER TAILBONE A FEW DAYS AGO. HAVING SOME INCREASE IN LOW BACK PAIN BUT SYMPTOMS ARE IMPROVING WITH CONSERVATIVE PENITENTIARY.-. FALL RISK SCREENING: SCREENING :ONE FALL WITH INJURY IN THE PAST YEAR FELL LAST THURSDAY AND HURT TAILBONE PAIN SCREENING: PATIENT HAS A COMPLAINT OF ACUTE OR CHRONIC PAIN :YES LOCATION OF PAIN:LOW BACK TAILBONE AREA INTENSITY OF PAIN (SCALE OF 1 TO 10):4 WHAT DOES YOUR PAIN FEEL LIKE:SORE DURATION:STEADY PAIN IS INCREASED BY:ACTIVITIES PAIN IS DECREASED BY:USE OF PAIN MEDICATIONS, OTHERS NURSING NOTE: -. PAIN CENTER INTAKE QUESTIONS: DO YOU HAVE A HISTORY OF MRSA? :NO DO YOU TAKE A BLOOD THINNERS? :NO DO YOU HAVE ANY BLEEDING DISORDERS? :NO ANY NEW NUMBNESS OR WEAKNESS IN YOUR LEGS OR ARMS? :NO ANY PACEMAKER,DEFIBRILLATOR, OR DORSAL COLUMN STIMULATOR? :NO DO YOU HAVE ANY RASHES OR OPEN SORES? :NO ARE YOU ALLERGIC TO IV DYE? :NO ARE YOU DIABETIC? :NO ANY NEW PROBLEMS WITH YOUR MEDICATIONS? :NO HAVE YOU RECEIVED A VACCINE IN THE PAST 30 DAYS? :NO DO YOU PLAN TO RECEIVE A VACCINE IN THE NEXT 21 DAYS? :NO DO YOU NEED ANY PRESCRIPTION? :NO DO YOU TAKE ANY IMMUNOSUPPRESSIVE MEDICATIONS? :NO IS THERE A CHANCE YOU COULD BE ? :NO ARE YOU BREAST FEEDING? :NO CURRENT MEDICATIONS TAKING VITAMIN D 2000 UNIT TABLET OTC 1 TAB(S) ORALLY ONCE A DAY, NOTES: 08/15 830 TAKING ACETAMINOPHEN 500 MG CAPSULE 1 CAPSULE NEEDED ORALLY NEEDED, NOTES: NONE RECENT TAKING LEVOTHYROXINE SODIUM 100 MCG TABLET 1 TABLET EVERY MORNING ON AN EMPTY STOMACH ORALLY ONCE A DAY, NOTES: 08/15 830 TAKING SYMBICORT 160-4.5 MCG/ACT AEROSOL 2 PUFFS INHALATION TWICE A DAY, NOTES: 08/15 830 TAKING LOVASTATIN 40 MG TABLET 1 TABLET WITH A MEAL ORALLY ONCE A DAY, NOTES: 08/14 2300 TAKING PAROXETINE HCL 20 MG TABLET 1 TABLET IN THE MORNING ORALLY ONCE A DAY, NOTES: 08/15 830 TAKING LEVOCETIRIZINE DIHYDROCHLORIDE 5 MG TABLET 1 TABLET IN THE EVENING ORALLY ONCE A DAY, NOTES: 08/14 2300 TAKING ASPIR-81 81 MG TABLET DELAYED RELEASE 1 TABLET ORALLY ONCE A DAY, NOTES: 08/15 830 TAKING SPIRIVA HANDIHALER 18 MCG CAPSULE 1 CAPSULE BY INHALING THE CONTENTS OF THE CAPSULE USING THE HANDIHALER DEVICE INHALATION ONCE A DAY, NOTES: 08/14 830 TAKING PANTOPRAZOLE SODIUM 40 MG TABLET DELAYED RELEASE 1 TABLET ORALLY BID, NOTES: 08/14 1800 TAKING ROPINIROLE HCL 0.25 MG TABLET 1 TABLET 1 TO 3 HOURS BEFORE BEDTIME ORALLY BID, NOTES: 08/14 2300 TAKING MELOXICAM 7.5 MG TABLET 1 TABLET ORALLY BID, NOTES: 08/14 2000 TAKING FOLIC ACID 1 MG TABLET 1 TABLET ORALLY ONCE A DAY, NOTES: 08/15 830 NOT-TAKING SINGULAIR 10 MG TABLET 1 TAB(S) P.O. ONCE A DAY NOT-TAKING AMLODIPINE 2.5MG TABLET 1 TABLET ORAL ONCE A DAY NOT-TAKING CLEOCIN 2 % CREAM 1 APPLICATION AT BEDTIME VAGINAL TWICE A WEEK NOT-TAKING METRONIDAZOLE 500 MG TABLET 1 TABLET ORALLY BID NOT-TAKING CALCIUM 600 + D 600-400 MG-UNIT TABLET OTC 1 TABLET ORALLY ONCE A DAY NOT-TAKING LIDOCAINE 5 % PATCH 1 PATCH TO INTACT SKIN REMOVE AFTER 12 HOURS EXTERNALLY THREE TIMES A DAY NEEDED NOT-TAKING NABUMETONE 750 MG TABLET 1 TABLET ORALLY NEEDED NOT-TAKING LEXAPRO 10 20 MG TABLET 1 TAB(S) P.O. ONCE A DAY NOT-TAKING CLINDAMYCIN 300 MG 10D 300 MG TABLETS ONE TAB ORALLY TWICE A DAY NOT-TAKING DIFLUCAN 150 MG TABLET 1 TABLET ORALLY TAKE ONE AT START OF ANTIBIOTICS, MAY REPEAT 1 WK PRN NOT-TAKING SYDNI 180 MG TABLET 1 TAB(S) P.O. ONCE A DAY NOT-TAKING ADVAIR DISKUS 250-50 MCG/DOSE MISCELLANEOUS 1 PUFF INHALATION TWICE A DAY MEDICATION LIST REVIEWED AND RECONCILED WITH THE PATIENT PAST MEDICAL HISTORY HYPERCHOLESTEROLEMIA MIGRAINE HEADACHES HYPOTHYROIDISM ESOPHAGEAL REFLUX IRRITABLE BOWEL SYNDROME SCABIES 08/14 HX BLOOD CLOTS IN LEGS ANXIETY PERIMENOPAUSE FIBROCYSTIC BREAST DISEASE AAA 07/16 RECURRENT BV EMB 01/09/16 FOR AUB NORMAL LOW BACK PAIN ALLERGIES SULFA (FOR ALLERGY USE ONLY): RASH, ITCHING - ALLERGY SURGICAL HISTORY C SECTION 1992 TUBAL LIGATION 1995 CHOLECYSTECTOMY 01/1999 CARPAL TUNNEL RELEASE (RIGHT) D&C DUE TO MENORRHAGIA 06/2007 D&C AND HYSTEROSCOPY 06/2009 ANGIOPLASTY 2005 EGD/COLONOSCOPY (REINDL), POLYPS REMOVED, GERD, IBS DUE 2019 2011,2014 MESMENTIC BYPASS-ABDOMINAL AORTIC ANEURYSM REPAIR 07/10/2014 NECK SURGERY FUSION ORIF 2016 FAMILY HISTORY FATHER: 47 YRS, LUNG CANCER MOTHER: 80 YRS, LEUKOPENIA, DM, CML SIBLINGS: 42 YRS, BROTHER- OF STOMACH CANCER. ANOTHER BROTHER-BRAIN AND LUNG CANCER. TWO OTHER BROTHERS-COPD. ONE SISTER-LUNG CANCER W/METS TO BRAIN. TWO OTHER SISTERS-THYROID DISEASE. SISTER WITH ENDOMETRIAL CANCER AT 23 /REMAINING BROTHER, NO KNOWN MEDICAL PROBLEMS DAUGHTER(S): ALIVE, AGES 22,19 PATERNAL GRAND FATHER: PATERNAL GRAND MOTHER: , BREAST CANCER 5 BROTHER(S) , 3 SISTER(S) . 2DAUGHTER(S) - HEALTHY. DENIES COLON OR OVARIAN CANCERS. PGM, MGA BOTH , BREAST CANCER.2 BROTHERS , 1 SISTER . SOCIAL HISTORY GENERAL: TOBACCO USE ARE YOU A:CURRENT SMOKER HOW OFTEN DO YOU SMOKE CIGARETTES?EVERY DAY HOW SOON AFTER YOU WAKE UP DO YOU SMOKE YOUR FIRST CIGARETTE?WITHIN 5 MIN HOW MANY CIGARETTES A DAY DO YOU SMOKE?11-20 ARE YOU INTERESTED IN QUITTING?NOT READY TO QUIT PATIENT COUNSELED ON THE DANGERS OF TOBACCO USE AND URGED TO QUIT:08/15/2020 COUNSELED THE PATIENT ON SMOKING EFFECTS, EDUCATION [id number]/05/2020 LATEX QUESTIONNAIRE LATEX ALLERGY : HAVE YOU EVER DEVELOPED ANY TYPE OF REACTION AFTER HANDLING LATEX PRODUCTS SUCH RUBBER GLOVES, CONDOMS, DIAPHRAGMS, BALLOONS, SOCKS, OR UNDERWEAR?NO LATEX ALLERGY : HAVE YOU EVER DEVELOPED ANY TYPE OF REACTION DURING OR AFTER DENTAL APPOINTMENT, VAGINAL/RECTAL EXAMINATION, SURGICAL PROCEDURE, OR ANY OTHER EXPOSURE?NO LATEX RISK : HAVE YOU EVER HAD ANY DIFFICULTY BREATHING OR HIVES AFTER EATING OR HANDLING ANY FRUITS, OR VEGETABLES; SUCH KIWI, BANANAS, STONE FRUITS, OR CHESTNUTSNO LATEX RISK : DO YOU HAVE A PREVIOUS PERSONAL HISTORY OF MORE THAN NINE SURGERIES, SPINA BIFIDA, OR REPEATED CATHERIZATIONS? NO LATEX RISK : ARE YOU FREQUENTLY EXPOSED TO LATEX PRODUCTS IN YOUR OCCUPATION?NO DATE ASKED : 08/29/2020 ALCOHOL SCREENING DID YOU HAVE A DRINK CONTAINING ALCOHOL IN THE PAST YEAR?YES HOW OFTEN DID YOU HAVE SIX OR MORE DRINKS ON ONE OCCASION IN THE PAST YEAR?LESS THAN MONTHLY (1 POINT) HOW MANY DRINKS DID YOU HAVE ON A TYPICAL DAY WHEN YOU WERE DRINKING IN THE PAST YEAR?5 OR 6 (2 POINTS) HOW OFTEN DID YOU HAVE A DRINK CONTAINING ALCOHOL IN THE PAST YEAR?TWO TO FOUR TIMES A MONTH (2 POINTS) POINTS5 INTERPRETATIONPOSITIVE RECREATIONAL DRUG USE DENIES. CAFFEINE 5-6/DAY. HIV / HEP-C SCREENING HIV TEST OFFERED TO PATIENT:YES DATE OFFERED:09/22/2017 TEST ACCEPTED:NO HEP-C TEST OFFERED TO PATIENT:NO REASON:PATIENT DECLINED ZOROASTRIAN [id number] MU-ISM LANGUAGE LANGUAGES SPOKEN:KHMER EDUCATION LEVEL OF EDUCATION:HIGH SCHOOL GED LEARNING BARRIERS / SPECIAL NEEDS CHANGE FROM LAST VISIT?NO BARRIERS TO LEARNING?NO HEARING IMPAIRED?NO VISION IMPAIRED?YES COGNITIVELY IMPAIRED?NO :CORRECTIVE LENSES READINESS TO LEARN?YES LEARNING PREFERENCES?NO LEARNING CAPABILITIES PRESENT?YES EMOTIONAL BARRIERS?NO SPECIAL DEVICES?NO DATABASE REPORTING CONSULTANT NEEDED?NO DOMESTIC VIOLENCE DO YOU FEEL SAFE IN YOUR ENVIRONMENT?YES 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 DIET: REGULAR, NO EATING DISORDERS. EXERCISE: NO REGULAR EXERCISE. MARITAL STATUS: X 15 YRS, TOGETHER 24 YRS. OTHERS AT HOME: SPOUSE. PAIN CLINIC PFS, CLERGY, PUBLIC HEALTH REFERRALS HAS THE PATIENT BEEN EDUCATED REGARDING HIS/HER PLAN OF CARE?YES HAS THE PATIENT BEEN EDUCATED REGARDING PAIN, THE RISK FOR PAIN, THE IMPORTANCE OF EFFECTIVE PAIN MANAGEMENT, AND THE PAIN ASSESSMENT PROCESS?YES ADVANCE DIRECTIVE ADVANCE DIRECTIVE DISCUSSED WITH PATIENT:YES PT STATES SHE HAS A HCP- ANA [phone] HOSPITALIZATION/MAJOR DIAGNOSTIC PROCEDURE SURGERIES REVIEW OF SYSTEMS CONSTITUTIONAL: ANY RECENT FEVER NO . CHILLS NO . WEIGHT CHANGE OF UNKNOWN REASONS NO . GASTROENTEROLOGY: NEW UNEXPLAINABLE CHANGES IN BOWEL CONTROL NO . CONSTIPATION NO . GENITOURINARY: ANY NEW CHANGE IN BLADDER CONTROL? NO . NEUROLOGY: NEW ONSET DIZZINESS OR NEUROLOGICAL CHANGES NOT MENTIONED NO . NEW NUMBNESS OR PAIN PATTERNS NOT MENTIONED AND PERTINENT TO TODAY'S VISIT NO . CARDIOLOGY: NEW CHEST PRESSURE NO . NEW CHEST PAIN NO . RESPIRATORY: UNEXPLAINABLE COUGH NO . NEW SHORTNESS OF BREATH NO . VITAL SIGNS WT 162.6 LBS, HT 63.5 IN, BMI 28.35 INDEX, BP 115/59 MM HG, HR 79 /MIN, RR 18 /MIN, TEMP 96.5 F, OXYGEN SAT % 99%, SAFE IN ENV? (Y/N) YES, NA INITIALS WY 09:22, REVIEWED BY: NISH. EXAMINATION GENERAL EXAMINATION: GENERALAWAKE,ALERT ,PLEASANT . PSYCHAFFECT NORMAL . LUNGS:LUNG REYNOLDS ARE CLEAR TO AUSCULTATION BILATERALLY. GOOD MOVEMENT OF AIR . HEART:S1, S2 IN A REGULAR RATE AND RHYTHM. NO SIGNIFICANT MURMURS, RUBS OR GALLOPS NOTED . ASSESSMENTS OTHER CHRONIC PAIN - G89.29 (PRIMARY) INTERVERTEBRAL DISC DISORDERS WITH RADICULOPATHY, LUMBOSACRAL REGION - M51.17 TREATMENT OTHER CHRONIC PAIN PAIN PROCEDURE LOGDATE OF [id number]/14/2020PROCEDURE:LUMBAR EPIDURAL STEROID INJECTIONAMOUNT OF PRE SEDATEVALIUM 5 MG PO & OXYCODONE 5 MG PORESULT:REPORTING IMPROVEMENT POST PROCEDURE NOTES: CONTINUE CONSERVATIVE CARE FOR ACUTE LOW BACK INJURY. PROCEDURE CODES [id number] ESTABILISHED PATIENT [facility] FAC[facility] CHARGE DISPOSITION & COMMUNICATION FOLLOW UP 2 MONTHS (REASON: LUMBAR DISC PROTRUSION) ELECTRONICALLY SIGNED BY DEBORA ALY ON 09/03/2020 AT 12:53 PM EST DISCLAIMER : THIS IS A VISIT SUMMARY EXTRACTED FROM THE As It Is CHART. IT IS NOT A COPY OF THE As It Is PROGRESS NOTE. [place]
== END ==
LOC: M PAIN 09:00
PROVIDERS: ATTEND Nurse Practitioner Family
DX: G89.29 Other chronic pain (principal); M51.17 Intervertebral disc disorders with radiculopathy, lumbosacral region; E78.00 Pure hypercholesterolemia, unspecified; G43.909 Migraine, unspecified, not intractable, without status migrainosus; E03.9 Hypothyroidism, unspecified; K21.9 Gastro-esophageal reflux disease without esophagitis; K58.9 Irritable bowel syndrome, unspecified; F41.9 Anxiety disorder, unspecified; F17.210 Nicotine dependence, cigarettes, uncomplicated; Z79.82 Long term (current) use of aspirin; Z79.899 Other long term (current) drug therapy; Z88.2 Allergy status to sulfonamides

== ENCOUNTER → 2020-10-19 | Outpatient (CLI) | payer BC ==
[~2020-10-19] MED LIST changes: -MONT10TA4 PO; +MONT5TAB2 PO
--- NOTE | 2020-10-23 04:58 | ECWPNPC ---
PATIENT NAME: CEASAR DE LEON : 1965 GENDER: FEMALE VISIT DATE: 10/19/2020 DISCHARGE DATE: 10/19/20 1406 VISIT LOCKED DATE TIME: PHYSICIAN: DANITZA ACOSTA RESOURCE: DANITZA ACOSTA REASON FOR APPOINTMENT 1. LUMBAR DISC PROTRUSION HISTORY OF PRESENT ILLNESS PAIN CENTER INTAKE QUESTIONS: DO YOU HAVE A HISTORY OF MRSA? :NO DO YOU TAKE A BLOOD THINNERS? :NO DO YOU HAVE ANY BLEEDING DISORDERS? :NO ANY NEW NUMBNESS OR WEAKNESS IN YOUR LEGS OR ARMS? :NO ANY PACEMAKER,DEFIBRILLATOR, OR DORSAL COLUMN STIMULATOR? :NO DO YOU HAVE ANY RASHES OR OPEN SORES? :NO ARE YOU ALLERGIC TO IV DYE? :NO ARE YOU DIABETIC? :NO ANY NEW PROBLEMS WITH YOUR MEDICATIONS? :NO HAVE YOU RECEIVED A VACCINE IN THE PAST 30 DAYS? :NO DO YOU PLAN TO RECEIVE A VACCINE IN THE NEXT 21 DAYS? :NO DO YOU NEED ANY PRESCRIPTION? :NO DO YOU TAKE ANY IMMUNOSUPPRESSIVE MEDICATIONS? :NO IS THERE A CHANCE YOU COULD BE ? :NO ARE YOU BREAST FEEDING? :NO GENERAL: HERE FOR FOLLOW-UP OF CHRONIC LOW BACK PAIN WITH RIGHT LEG RADICULAR SYMPTOMS. OVERALL DOING VERY WELL. CONTINUES TO BENEFIT FROM EPIDURAL STEROID INJECTION SHE HAD SEVERAL MONTHS AGO. COMPLAINING OF RIGHT BIG TOE INTERMITTENT CRAMPING THAT IS SEVERE. THIS BEGAN A FEW WEEKS AGO. DISCUSSED CONSERVATIVE CARE. DISCUSSED TRIAL OF MAGNESIUM 200 MG TWICE A DAY. SHE WILL DISCUSS WITH PRIMARY CARE IF SYMPTOMS PERSIST. -. FALL RISK SCREENING: SCREENING :ONE FALL WITH INJURY IN THE PAST YEAR PATIENT STATE THAT SHE LOST BALANCE AND FALL FROM WALKING NO INJJURE OR ER VISIT PAIN SCREENING: PATIENT HAS A COMPLAINT OF ACUTE OR CHRONIC PAIN :YES LOCATION OF PAIN:LOW BACK, LEFT HIP, LEG(S), OTHER: BUTTOCKS INTENSITY OF PAIN (SCALE OF 1 TO 10):0 WHAT DOES YOUR PAIN FEEL LIKE:CONTINOUS, OTHER INTENSE STEADY PAIN DURATION:CONTINOUS WORSENS WITH ACTIVITIVES PAIN IS INCREASED BY:ACTIVITIES PAIN IS DECREASED BY:SITTING, OTHERS HEATING PAD NURSING NOTE: -. CURRENT MEDICATIONS TAKING VITAMIN D 2000 UNIT TABLET OTC 1 TAB(S) ORALLY ONCE A DAY TAKING ACETAMINOPHEN 500 MG CAPSULE 1 CAPSULE NEEDED ORALLY NEEDED TAKING LEVOTHYROXINE SODIUM 100 MCG TABLET 1 TABLET EVERY MORNING ON AN EMPTY STOMACH ORALLY ONCE A DAY TAKING SYMBICORT 160-4.5 MCG/ACT AEROSOL 2 PUFFS INHALATION TWICE A DAY TAKING LOVASTATIN 40 MG TABLET 1 TABLET WITH A MEAL ORALLY ONCE A DAY TAKING PAROXETINE HCL 20 MG TABLET 1 TABLET IN THE MORNING ORALLY ONCE A DAY TAKING LEVOCETIRIZINE DIHYDROCHLORIDE 5 MG TABLET 1 TABLET IN THE EVENING ORALLY ONCE A DAY TAKING ASPIR-81 81 MG TABLET DELAYED RELEASE 1 TABLET ORALLY ONCE A DAY TAKING SPIRIVA HANDIHALER 18 MCG CAPSULE 1 CAPSULE BY INHALING THE CONTENTS OF THE CAPSULE USING THE HANDIHALER DEVICE INHALATION ONCE A DAY TAKING PANTOPRAZOLE SODIUM 40 MG TABLET DELAYED RELEASE 1 TABLET ORALLY BID TAKING ROPINIROLE HCL 0.25 MG TABLET 1 TABLET 1 TO 3 HOURS BEFORE BEDTIME ORALLY BID TAKING MELOXICAM 7.5 MG TABLET 1 TABLET ORALLY BID TAKING FOLIC ACID 1 MG TABLET 1 TABLET ORALLY ONCE A DAY NOT-TAKING SINGULAIR 10 MG TABLET 1 TAB(S) P.O. ONCE A DAY NOT-TAKING AMLODIPINE 2.5MG TABLET 1 TABLET ORAL ONCE A DAY NOT-TAKING CLEOCIN 2 % CREAM 1 APPLICATION AT BEDTIME VAGINAL TWICE A WEEK NOT-TAKING METRONIDAZOLE 500 MG TABLET 1 TABLET ORALLY BID NOT-TAKING CALCIUM 600 + D 600-400 MG-UNIT TABLET OTC 1 TABLET ORALLY ONCE A DAY NOT-TAKING LIDOCAINE 5 % PATCH 1 PATCH TO INTACT SKIN REMOVE AFTER 12 HOURS EXTERNALLY THREE TIMES A DAY NEEDED NOT-TAKING NABUMETONE 750 MG TABLET 1 TABLET ORALLY NEEDED NOT-TAKING LEXAPRO 10 20 MG TABLET 1 TAB(S) P.O. ONCE A DAY NOT-TAKING CLINDAMYCIN 300 MG 10D 300 MG TABLETS ONE TAB ORALLY TWICE A DAY NOT-TAKING DIFLUCAN 150 MG TABLET 1 TABLET ORALLY TAKE ONE AT START OF ANTIBIOTICS, MAY REPEAT 1 WK PRN NOT-TAKING SYDNI 180 MG TABLET 1 TAB(S) P.O. ONCE A DAY NOT-TAKING ADVAIR DISKUS 250-50 MCG/DOSE MISCELLANEOUS 1 PUFF INHALATION TWICE A DAY MEDICATION LIST REVIEWED AND RECONCILED WITH THE PATIENT PAST MEDICAL HISTORY HYPERCHOLESTEROLEMIA MIGRAINE HEADACHES HYPOTHYROIDISM ESOPHAGEAL REFLUX IRRITABLE BOWEL SYNDROME SCABIES 08/14 HX BLOOD CLOTS IN LEGS ANXIETY PERIMENOPAUSE FIBROCYSTIC BREAST DISEASE AAA 07/16 RECURRENT BV EMB 01/09/16 FOR AUB NORMAL LOW BACK PAIN ALLERGIES SULFA (FOR ALLERGY USE ONLY): RASH, ITCHING - ALLERGY SURGICAL HISTORY C SECTION 1992 TUBAL LIGATION 1995 CHOLECYSTECTOMY 01/1999 CARPAL TUNNEL RELEASE (RIGHT) D&C DUE TO MENORRHAGIA 06/2007 D&C AND HYSTEROSCOPY 06/2009 ANGIOPLASTY 2005 EGD/COLONOSCOPY (REINDL), POLYPS REMOVED, GERD, IBS DUE 2019 MESMENTIC BYPASS-ABDOMINAL AORTIC ANEURYSM REPAIR 07/10/2014 NECK SURGERY FUSION ORIF 2016 FAMILY HISTORY FATHER: 47 YRS, LUNG CANCER MOTHER: 80 YRS, LEUKOPENIA, DM, CML SIBLINGS: 42 YRS, BROTHER- OF STOMACH CANCER. ANOTHER BROTHER-BRAIN AND LUNG CANCER. TWO OTHER BROTHERS-COPD. ONE SISTER-LUNG CANCER W/METS TO BRAIN. TWO OTHER SISTERS-THYROID DISEASE. SISTER WITH ENDOMETRIAL CANCER AT 23 /REMAINING BROTHER, NO KNOWN MEDICAL PROBLEMS DAUGHTER(S): ALIVE, AGES 22,19 PATERNAL GRAND FATHER: PATERNAL GRAND MOTHER: , BREAST CANCER 5 BROTHER(S) , 3 SISTER(S) . 2DAUGHTER(S) - HEALTHY. DENIES COLON OR OVARIAN CANCERS. PGM, MGA BOTH , BREAST CANCER.2 BROTHERS , 1 SISTER . SOCIAL HISTORY GENERAL: TOBACCO USE ARE YOU A:CURRENT SMOKER ARE YOU INTERESTED IN QUITTING?NOT READY TO QUIT COUNSELED THE PATIENT ON SMOKING EFFECTS, EDUCATION [id number]/18/2020 HOW MANY CIGARETTES A DAY DO YOU SMOKE?11-20 HOW SOON AFTER YOU WAKE UP DO YOU SMOKE YOUR FIRST CIGARETTE?WITHIN 5 MIN HOW OFTEN DO YOU SMOKE CIGARETTES?EVERY DAY PATIENT COUNSELED ON THE DANGERS OF TOBACCO USE AND URGED TO QUIT:08/15/2020 LATEX QUESTIONNAIRE LATEX ALLERGY : HAVE YOU EVER DEVELOPED ANY TYPE OF REACTION AFTER HANDLING LATEX PRODUCTS SUCH RUBBER GLOVES, CONDOMS, DIAPHRAGMS, BALLOONS, SOCKS, OR UNDERWEAR?NO LATEX ALLERGY : HAVE YOU EVER DEVELOPED ANY TYPE OF REACTION DURING OR AFTER DENTAL APPOINTMENT, VAGINAL/RECTAL EXAMINATION, SURGICAL PROCEDURE, OR ANY OTHER EXPOSURE?NO LATEX RISK : HAVE YOU EVER HAD ANY DIFFICULTY BREATHING OR HIVES AFTER EATING OR HANDLING ANY FRUITS, OR VEGETABLES; SUCH KIWI, BANANAS, STONE FRUITS, OR CHESTNUTSNO LATEX RISK : DO YOU HAVE A PREVIOUS PERSONAL HISTORY OF MORE THAN NINE SURGERIES, SPINA BIFIDA, OR REPEATED CATHERIZATIONS? NO LATEX RISK : ARE YOU FREQUENTLY EXPOSED TO LATEX PRODUCTS IN YOUR OCCUPATION?NO DATE ASKED : 08/29/2020 ALCOHOL SCREENING DID YOU HAVE A DRINK CONTAINING ALCOHOL IN THE PAST YEAR?YES HOW OFTEN DID YOU HAVE A DRINK CONTAINING ALCOHOL IN THE PAST YEAR?TWO TO FOUR TIMES A MONTH (2 POINTS) HOW MANY DRINKS DID YOU HAVE ON A TYPICAL DAY WHEN YOU WERE DRINKING IN THE PAST YEAR?5 OR 6 (2 POINTS) HOW OFTEN DID YOU HAVE SIX OR MORE DRINKS ON ONE OCCASION IN THE PAST YEAR?LESS THAN MONTHLY (1 POINT) POINTS5 INTERPRETATIONPOSITIVE RECREATIONAL DRUG USE DENIES. CAFFEINE 5-6/DAY. 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 DIET: REGULAR, NO EATING DISORDERS. EXERCISE: NO REGULAR EXERCISE. MARITAL STATUS: X 15 YRS, TOGETHER 24 YRS. OTHERS AT HOME: SPOUSE. PAIN CLINIC PFS, CLERGY, PUBLIC HEALTH REFERRALS HAS THE PATIENT BEEN EDUCATED REGARDING HIS/HER PLAN OF CARE?YES HAS THE PATIENT BEEN EDUCATED REGARDING PAIN, THE RISK FOR PAIN, THE IMPORTANCE OF EFFECTIVE PAIN MANAGEMENT, AND THE PAIN ASSESSMENT PROCESS?YES ADVANCE DIRECTIVE ADVANCE DIRECTIVE DISCUSSED WITH PATIENT:YES PT STATES SHE HAS A HCP- NAA [phone] HOSPITALIZATION/MAJOR DIAGNOSTIC PROCEDURE SURGERIES REVIEW OF SYSTEMS CONSTITUTIONAL: ANY RECENT FEVER NO . CHILLS NO . WEIGHT CHANGE OF UNKNOWN REASONS NO . GASTROENTEROLOGY: NEW UNEXPLAINABLE CHANGES IN BOWEL CONTROL NO . CONSTIPATION NO . GENITOURINARY: ANY NEW CHANGE IN BLADDER CONTROL? NO . NEUROLOGY: NEW ONSET DIZZINESS OR NEUROLOGICAL CHANGES NOT MENTIONED NO . NEW NUMBNESS OR PAIN PATTERNS NOT MENTIONED AND PERTINENT TO TODAY'S VISIT NO . CARDIOLOGY: NEW CHEST PRESSURE NO . NEW CHEST PAIN NO . RESPIRATORY: UNEXPLAINABLE COUGH NO . NEW SHORTNESS OF BREATH NO . VITAL SIGNS WT 160.6 LBS, HT 63.5 IN, BMI 28.00 INDEX, BP 127/61 MM HG, HR 89 /MIN, RR 18 /MIN, TEMP 97.5 F, OXYGEN SAT % 99%, SAFE IN ENV? (Y/N) YES, NA INITIALS CO 13:34, REVIEWED BY: PAULINA KLEIN. EXAMINATION GENERAL EXAMINATION: GENERALAWAKE,ALERT ,PLEASANT . PSYCHAFFECT NORMAL . LUNGS:LUNG REYNOLDS ARE CLEAR TO AUSCULTATION BILATERALLY. GOOD MOVEMENT OF AIR . HEART:S1, S2 IN A REGULAR RATE AND RHYTHM. NO SIGNIFICANT MURMURS, RUBS OR GALLOPS NOTED . ASSESSMENTS INTERVERTEBRAL DISC DISORDERS WITH RADICULOPATHY, LUMBOSACRAL REGION - M51.17 (PRIMARY) TREATMENT INTERVERTEBRAL DISC DISORDERS WITH RADICULOPATHY, LUMBOSACRAL REGION NOTES: CONTINUE HOME EXERCISE AND STRETCHING. PATIENT WILL CALL US FOR FOLLOW-UP IF NEEDED. PROCEDURE CODES FA211 ESTABILISHED PATIENT [facility] CHARGE DISPOSITION & COMMUNICATION FOLLOW UP PATIENT WILL CALL WHEN NEEDED FOR FOLLOW-UP (REASON: LOW BACK PAIN WITH RIGHT LEG RADICULOPATHY/RESPONDS WELL TO LUMBAR EPIDURAL STEROID INJECTION.) ELECTRONICALLY SIGNED BY DEBORA ALY ON 10/22/2020 AT 08:39 AM EST DISCLAIMER : THIS IS A VISIT SUMMARY EXTRACTED FROM THE [employer] CHART. IT IS NOT A COPY OF THE [employer] PROGRESS NOTE. [place]
== END ==
LOC: M PAIN 13:30
PROVIDERS: ATTEND Nurse Practitioner Family
DX: M51.17 Intervertebral disc disorders with radiculopathy, lumbosacral region (principal); G89.29 Other chronic pain; G43.909 Migraine, unspecified, not intractable, without status migrainosus; E03.9 Hypothyroidism, unspecified; K21.9 Gastro-esophageal reflux disease without esophagitis; F17.210 Nicotine dependence, cigarettes, uncomplicated; Z86.59 Personal history of other mental and behavioral disorders; Z88.2 Allergy status to sulfonamides; Z79.82 Long term (current) use of aspirin; Z79.899 Other long term (current) drug therapy

== ENCOUNTER → 2020-12-25 | Outpatient (REF) | payer BC ==
[~2020-12-25] MED LIST changes: +D31000TA2 PO; +FOLI1TAB11 PO; +MOBI4TAB PO; +MONT10TA10 PO; -MONT5TAB2 PO; +ROPI0.253 PO; +SPIR1CAP INH; +SYMB16INH INH; +SYNT100T PO; +VENTAER INH
== END ==
LOC: M SFHCWAGY 13:44
PROVIDERS: ATTEND Nurse Practitioner Family
DX: Z12.4 Encounter for screening for malignant neoplasm of cervix (principal); Z01.419 Encounter for gynecological examination (general) (routine) without abnormal findings

== ENCOUNTER → 2020-12-25 | Outpatient (CLI) | payer BC ==
--- NOTE | 2020-12-25 10:09 | REPMRS ---
Patient History The patient states she had a clinical breast exam in 12/2020 Family history of breast cancer at age 50 or over in paternal grandmother. Benign radio exam breast specimen of the right breast, February 07, 2016. Benign stereotatic loc for ea lesion of the right breast, February 07, 2016. No Hormone Replacement Therapy Digital Woman Screen Mammo: December 25, 2020 - Exam #: [id number] Bilateral CC and MLO view(s) were taken. Technologist: Louann Barboza, Technologist Prior study comparison: December 15, 2019, bilateral digital woman screen mammo performed at [facility]. September 28, 2018, bilateral digital woman screen mammo performed at [facility]. September 22, 2017, digital woman screen mammo performed at [facility]. FINDINGS: There are scattered fibroglandular densities. The Volpara volumetric breast density category is:B. There is a stable nodular density in the subareolar region on the left. There is a needle biopsy marker clip in the right breast. There has been no change in the appearance of the mammogram from the prior studies. There is a mild amount of scattered fibroglandular density which is fairly symmetric. There is no interval development of dominant mass, architectural distortion, or grouped microcalcification suggestive of malignancy. 3-D tomosynthesis shows no additional findings. Assessment: BI-RADS/ACR category 2 mammogram. Benign Findings. Recommendation Routine screening mammogram of both breasts in 1 year (for women over age 40). This patient's [facility] Lifetime Breast Cancer Risk is estimated at 17.3 %. This mammogram was interpreted with the aid of an FDA-approved computer-aided dectection system. Electronically Signed By: Ej Dawn MD 12/25/20 [id number]
== END ==
LOC: M WHC 08:33
PROVIDERS: ATTEND Nurse Practitioner Family
DX: Z12.31 Encounter for screening mammogram for malignant neoplasm of breast (principal)

== ENCOUNTER → 2020-12-29 | Outpatient (CLI) | payer BC | LOC: M LABSMTC 08:34 | PROVIDERS: ATTEND Anesthesiology | DX: Z01.812 Encounter for preprocedural laboratory examination (principal); Z20.822 Contact with and (suspected) exposure to COVID-19 ==

== ENCOUNTER 2021-01-03 08:51 | Day surgery (SDC) | payer BC ==
[~2021-01-03] VITALS: Ht 158.8 cm; Wt 73.5 kg
[~2021-01-03 08:51] MED LIST changes: +LIDOCAINE 2% 100MG/5ML SDV (FOR ANES.) As Ordered ONE; +NS 1,000 ML IV ONE; +propofoL 200 MG/20 ML VIAL As Ordered ONE
--- NOTE | 2021-01-03 10:40 | ROOR ---
Patient Name: Rhonda Monterroso Procedure Date: 01/03/2021 10:11 AM Date of : 1965 Age: 55 Room: [facility] Gender: Female Note Status: Finalized Procedure: Colonoscopy Indications: High risk colon cancer surveillance: Personal history of colonic polyps Providers: Jonathan MERCADO MD Referring MD: Otis Maria MD Requesting Provider: Medicines: Monitored Anesthesia Care Complications: No immediate complications. Procedure: Pre-Anesthesia Assessment: - The heart rate, respiratory rate, oxygen saturations, blood pressure, adequacy of pulmonary ventilation, and response to care were monitored throughout the procedure. The Colonoscope was introduced through the anus and advanced to the terminal ileum, with identification of the appendiceal orifice and IC valve. The colonoscopy was performed without difficulty. The patient tolerated the procedure well. The quality of the bowel preparation was adequate. Findings: (Exam: Complete to cecum/terminal ileum, Visualisation/Prep: Good/Adequate.) The perianal and digital rectal examinations were normal. Four sessile polyps were found in the sigmoid colon, hepatic flexure and ascending colon. The polyps were 4 to 5 mm in size. These polyps were removed with a cold snare. Resection and retrieval were complete. Small Internal Hemorrhoids. The exam was otherwise without abnormality on direct and retroflexion views. Impression: - Four 4 to 5 mm polyps in the sigmoid colon, at the hepatic flexure and in the ascending colon, removed with a cold snare. Resected and retrieved. - Small Internal Hemorrhoids. - The examination was otherwise normal on direct and retroflexion views. - (Exam: Complete to cecum/terminal ileum, Visualisation/Prep: Good/Adequate.) Recommendation: - Repeat colonoscopy in 3 years for surveillance. Procedure Code(s): --- Professional --- 53266, Colonoscopy, flexible; with removal of tumor(s), polyp(s), or other lesion(s) by snare technique Diagnosis Code(s): --- Professional --- K63.5, Polyp of colon Z86.010, Personal history of colonic polyps CPT copyright 2019 [employer]. All rights reserved. The codes documented in this report are preliminary and upon glass edger review may be revised to meet current compliance requirements. Jonathan Mercado MD Jonathan MERCADO MD 01/03/2021 10:40:19 AM Electronically signed by Jonathan MERCADO MD Number of Addenda: 0 Note Initiated On: 01/03/2021 10:11 AM Estimated Blood Loss: Estimated blood loss: none.
[2021-01-03 11:04] VITALS: BP 113/62
== END 2021-01-03 11:07 | disposition home or self-care (01) ==
LOC: M OPP 08:51
PROVIDERS: ATTEND Internal Medicine Gastroenterology
DX: Z12.11 Encounter for screening for malignant neoplasm of colon (principal); Z86.010 Personal history of colon polyps; K63.5 Polyp of colon; K64.8 Other hemorrhoids; J44.9 Chronic obstructive pulmonary disease, unspecified; F17.210 Nicotine dependence, cigarettes, uncomplicated; Z79.82 Long term (current) use of aspirin; Z79.899 Other long term (current) drug therapy; Z88.2 Allergy status to sulfonamides

== ENCOUNTER → 2022-02-17 | Outpatient (CLI) | payer BC ==
[~2022-02-17] MED LIST changes: -D31000TA2 PO; -LIDOCAINE 2% 100MG/5ML SDV (FOR ANES.) As Ordered ONE; -MONT10TA10 PO; +MONT10TA97 PO; -NS 1,000 ML IV ONE; +VITA100093 PO; -propofoL 200 MG/20 ML VIAL As Ordered ONE
== END ==
LOC: M WHC 09:36
PROVIDERS: ATTEND Specialist
DX: Z12.31 Encounter for screening mammogram for malignant neoplasm of breast (principal); R92.0 Mammographic microcalcification found on diagnostic imaging of breast

== ENCOUNTER → 2022-02-17 | Outpatient (REF) | payer BC | LOC: M PLALAB 12:07 | PROVIDERS: ATTEND Specialist | DX: Z01.419 Encounter for gynecological examination (general) (routine) without abnormal findings (principal); Z12.31 Encounter for screening mammogram for malignant neoplasm of breast ==

== ENCOUNTER → 2022-02-27 | Outpatient (CLI) | payer BC | LOC: M WHC 09:52 | PROVIDERS: ATTEND Specialist | DX: R92.2 Inconclusive mammogram (principal) | CPT/HCPCS: 76642; 77065; G0279 ==

== ENCOUNTER → 2022-05-23 | Outpatient (CLI) | payer BC ==
[~2022-05-23] MED LIST changes: +PEPC1TAB5 PO; +PROHANCE 279.3MG/ML 15ML VIAL ONE
== END ==
LOC: M PLAIMG 14:09
PROVIDERS: ATTEND Surgery
DX: D05.12 Intraductal carcinoma in situ of left breast (principal)
CPT/HCPCS: 77049; A9576

== ENCOUNTER → 2022-05-29 | Outpatient (CLI) | payer BC ==
[~2022-05-29] MED LIST changes: -PROHANCE 279.3MG/ML 15ML VIAL ONE
== END ==
LOC: M LABSMTC 09:34
PROVIDERS: ATTEND Anesthesiology
DX: Z11.52 Encounter for screening for COVID-19 (principal); Z20.822 Contact with and (suspected) exposure to COVID-19

== ENCOUNTER 2022-06-03 08:35 | Day surgery (SDC) | payer BC ==
[~2022-06-03] VITALS: Ht 160 cm; Wt 62.6 kg
[~2022-06-03 08:35] MED LIST changes: +HEPARIN SOD (PORCINE) 5000UNITS/ML 1ML VIAL/SYRINGE SQ ONE; +ceFAZolin SOD 2 GM in IV 1 EA IV ONE
[2022-06-03] MEDS ORDERED: LR 1,000 ML IV SCH ×2 (08:50→12:50)
[2022-06-03] MEDS ORDERED: LIDOCAINE 1% SDV 30ML VIAL As Ordered ONE (09:46)
[2022-06-03] MEDS ORDERED: BUPIVACAINE HCL 0.25% 30ML VIAL As Ordered ONE (09:47)
[2022-06-03] MEDS ORDERED: propofoL 200 MG/20 ML VIAL As Ordered ONE (10:34)
[2022-06-03] MEDS ORDERED: fentaNYL 100 MCG/2 ML INJECTION As Ordered ONE ×2 (10:34→10:55)
[2022-06-03] MEDS ORDERED: SUGAMMADEX SODIUM 500 MG/5 ML VIAL (BRIDION) As Ordered ONE (10:34)
[2022-06-03] MEDS ORDERED: dexameTHASONE 4 MG/ML 1ML VIAL (J1100 PER 1MG) As Ordered ONE (10:34)
[2022-06-03] MEDS ORDERED: MIDAZOLAM INJ 2MG/2ML VIAL (J2250 PER 1MG) As Ordered ONE (10:34)
[2022-06-03] MEDS ORDERED: ROCURONIUM BROMIDE 50 MG/5 ML VIAL As Ordered ONE (10:34)
[2022-06-03] MEDS ORDERED: LIDOCAINE 2% 100MG/5ML SDV (FOR ANES.) As Ordered ONE (10:34)
[2022-06-03] MEDS ORDERED: ONDANSETRON 4MG 2ML VIAL As Ordered ONE (10:35)
[2022-06-03] MEDS ORDERED: ACETAMINOPHEN 1000MG 100ML IV BTL (OFIRMEV) (J0131 PER 10MG) As Ordered ONE (11:05)
[2022-06-03] MEDS ORDERED: fentaNYL 100 MCG/2 ML INJECTION IV PRN (12:50)
[2022-06-03] MEDS ORDERED: ONDANSETRON 4MG 2ML VIAL IV PRN (12:50)
[2022-06-03] MEDS ORDERED: MORPHINE 2 MG/ML 1ML VIAL IV PRN (12:50)
[2022-06-03] MEDS ORDERED: oxyCODONE 5MG TAB PO PRN (12:50)
[2022-06-03] MEDS ORDERED: ROXI1TAB2 PO (13:08)
[2022-06-03 14:25] VITALS: BP 140/73
== END 2022-06-03 14:30 | disposition home or self-care (01) ==
LOC: M SDC 08:35
PROVIDERS: ATTEND Surgery
DX: D05.12 Intraductal carcinoma in situ of left breast (principal); Z80.3 Family history of malignant neoplasm of breast; Z13.79 Encounter for other screening for genetic and chromosomal anomalies; I10 Essential (primary) hypertension; J44.9 Chronic obstructive pulmonary disease, unspecified; E03.9 Hypothyroidism, unspecified; J45.909 Unspecified asthma, uncomplicated; I08.9 Rheumatic multiple valve disease, unspecified; F17.210 Nicotine dependence, cigarettes, uncomplicated
CPT/HCPCS: 19120; 36415; 76942; 81025; 86850; 86900; 86901; 88305; 88307; A4648; J0131; J0690; J1100; J1644; J2250; J2405; J3010

== ENCOUNTER 2022-06-25 07:10 | Outpatient (RCR) | payer BC ==
[~2022-06-25 07:10] MED LIST changes: -HEPARIN SOD (PORCINE) 5000UNITS/ML 1ML VIAL/SYRINGE SQ ONE; +ROXI1TAB2 PO; -ceFAZolin SOD 2 GM in IV 1 EA IV ONE
[2022-07-01] MEDS ORDERED: ANAS1TAB2 PO (14:57)
== END 2022-07-02 ==
LOC: M ONCR 07:10
PROVIDERS: ATTEND General Practice
DX: D05.12 Intraductal carcinoma in situ of left breast (principal)

== ENCOUNTER → 2022-07-15 | Outpatient (CLI) | payer BC ==
[~2022-07-15] MED LIST changes: +ANAS1TAB2 PO
== END ==
LOC: M WHC 10:58
PROVIDERS: ATTEND Specialist
DX: C50.919 Malignant neoplasm of unspecified site of unspecified female breast (principal); Z79.899 Other long term (current) drug therapy

== ENCOUNTER → 2022-08-01 | Outpatient (RCR) | payer BC | LOC: M ONCR 07-09 12:40 | PROVIDERS: ATTEND General Practice | DX: D05.12 Intraductal carcinoma in situ of left breast (principal) ==

== ENCOUNTER 2022-08-07 16:15 | Outpatient (RCR) | payer BC ==
[2022-09-01] MEDS ORDERED: AROM25TA PO (15:09)
== END 2022-09-01 ==
LOC: M ONCR 16:15
PROVIDERS: ATTEND General Practice
DX: D05.12 Intraductal carcinoma in situ of left breast (principal)

== ENCOUNTER → 2023-02-05 | Outpatient (CLI) | payer BC ==
[~2023-02-05] MED LIST changes: +AROM25TA PO
[2023-02-05 15:31] LABS: RHEUMATOID FACTOR QUANT 3.8 IU/ML (<14)
[2023-02-06 14:08] LABS: ANTINUCLEAR ANTIBODIES DIRECT Negative (Negative); IgG P18 AB Absent (.); IgG P23 AB Absent (.); IgG P28 AB Absent (.); IgG P30 AB Absent (.); IgG P39 AB Absent (.); IgG P41 AB Absent (.); IgG P45 AB Absent (.); IgG P66 AB Absent (.); IgG P93 AB Absent (.); IgM P23 AB Absent (.); IgM P39 AB Absent (.); IgM P41 AB Absent (.); LYME IgG WB INTERPRETATION Negative (.); LYME IgM WB INTERPRETATION Negative (.)
== END ==
LOC: M RAD 11:48
PROVIDERS: ATTEND Psychiatry & Neurology Neurology
DX: M25.531 Pain in right wrist (principal)

== ENCOUNTER → 2023-02-06 | Outpatient (CLI) | payer BC | LOC: M ONCR 14:09 | PROVIDERS: ATTEND General Practice | DX: D05.12 Intraductal carcinoma in situ of left breast (principal); L59.8 Other specified disorders of the skin and subcutaneous tissue related to radiation; S63.501A Unspecified sprain of right wrist, initial encounter; F17.210 Nicotine dependence, cigarettes, uncomplicated; Z79.811 Long term (current) use of aromatase inhibitors; Z79.899 Other long term (current) drug therapy; Z88.1 Allergy status to other antibiotic agents; Z88.2 Allergy status to sulfonamides; Z92.3 Personal history of irradiation ==

== ENCOUNTER → 2023-02-18 | Outpatient (CLI) | payer BC | LOC: M WHC 12:55 | PROVIDERS: ATTEND Nurse Practitioner Women's Health | DX: D05.12 Intraductal carcinoma in situ of left breast (principal) ==

== ENCOUNTER → 2023-08-11 | Outpatient (CLI) | payer BC ==
[~2023-08-11] MED LIST changes: -ROPI0.253 PO; +ROPI5TAB19 PO
== END ==
LOC: M ONCR 14:17
PROVIDERS: ATTEND General Practice
DX: D05.12 Intraductal carcinoma in situ of left breast (principal); F17.210 Nicotine dependence, cigarettes, uncomplicated; Z71.2 Person consulting for explanation of examination or test findings; Z79.51 Long term (current) use of inhaled steroids; Z79.811 Long term (current) use of aromatase inhibitors; Z79.82 Long term (current) use of aspirin; Z79.899 Other long term (current) drug therapy; Z88.1 Allergy status to other antibiotic agents; Z88.2 Allergy status to sulfonamides; Z92.3 Personal history of irradiation

== ENCOUNTER → 2024-02-29 | Outpatient (REF) | payer BC ==
[~2024-02-29] MED LIST changes: +EXEM25TA PO
== END ==
LOC: M SFHCWAGY 17:56
PROVIDERS: ATTEND Nurse Practitioner Family
DX: Z12.4 Encounter for screening for malignant neoplasm of cervix (principal); Z11.51 Encounter for screening for human papillomavirus (HPV)

== ENCOUNTER → 2024-02-29 | Outpatient (CLI) | payer BC | LOC: M WHC 14:27 | PROVIDERS: ATTEND Nurse Practitioner Women's Health | DX: Z08 Encounter for follow-up examination after completed treatment for malignant neoplasm (principal); Z85.3 Personal history of malignant neoplasm of breast; R92.333 Mammographic heterogeneous density, bilateral breasts ==

== ENCOUNTER 2024-03-22 12:50 | Day surgery (SDC) | payer BC ==
[~2024-03-22] VITALS: Ht 160 cm; Wt 68.0 kg
[~2024-03-22 12:50] MED LIST changes: +D 1010002 PO
[2024-03-22] MEDS: NS 1,000 ML IV ONE (13:09)
[2024-03-22] MEDS ORDERED: propofoL 200 MG/20 ML VIAL As Ordered ONE (14:23)
[2024-03-22] MEDS ORDERED: fentaNYL 100 MCG/2 ML INJECTION As Ordered ONE (14:23)
[2024-03-22] MEDS ORDERED: LIDOCAINE 2% 100MG/5ML SDV (FOR ANES.) As Ordered ONE (14:23)
[2024-03-22] MEDS ORDERED: GLYCOPYRROLATE INJ 0.2 MG/ML 2 ML VIAL As Ordered ONE (14:23)
[2024-03-22 15:20] VITALS: BP 114/73; TEMP 96.5; O2SAT 99
== END 2024-03-22 15:30 | disposition home or self-care (01) ==
LOC: M OPP 12:50
PROVIDERS: ATTEND Internal Medicine Gastroenterology
DX: Z12.11 Encounter for screening for malignant neoplasm of colon (principal); D12.5 Benign neoplasm of sigmoid colon; K64.8 Other hemorrhoids; Z86.010 Personal history of colon polyps; R10.12 Left upper quadrant pain; R12 Heartburn
CPT/HCPCS: 43235; 45385; 88305; J3010

== ENCOUNTER → 2024-08-24 | Outpatient (CLI) | payer OTHER | LOC: M ONCR 10:14 | PROVIDERS: ATTEND General Practice | DX: Z08 Encounter for follow-up examination after completed treatment for malignant neoplasm (principal); Z85.3 Personal history of malignant neoplasm of breast; F17.210 Nicotine dependence, cigarettes, uncomplicated; Z79.51 Long term (current) use of inhaled steroids; Z79.811 Long term (current) use of aromatase inhibitors; Z88.1 Allergy status to other antibiotic agents; Z88.2 Allergy status to sulfonamides; J30.89 Other allergic rhinitis; Z79.899 Other long term (current) drug therapy; Z92.3 Personal history of irradiation; Z98.890 Other specified postprocedural states ==

== ENCOUNTER → 2024-08-25 | Outpatient (CLI) | payer OTHER | LOC: M WHC 10:26 | PROVIDERS: ATTEND Specialist | DX: C50.912 Malignant neoplasm of unspecified site of left female breast (principal); Z13.828 Encounter for screening for other musculoskeletal disorder; M85.89 Other specified disorders of bone density and structure, multiple sites ==

== ENCOUNTER → 2025-03-02 | Outpatient (CLI) | payer OTHER ==
[~2025-03-02] MED LIST changes: +ACET-683; +FOLI400T13 PO; +LEVO112T2; +ROPI0.5T33
== END ==
LOC: M WHC 11:20
PROVIDERS: ATTEND Nurse Practitioner Family
DX: Z12.31 Encounter for screening mammogram for malignant neoplasm of breast (principal); R92.333 Mammographic heterogeneous density, bilateral breasts

== ENCOUNTER → 2025-08-24 | Outpatient (CLI) | payer OTHER | LOC: M ONCR 10:38 | PROVIDERS: ATTEND General Practice | DX: Z08 Encounter for follow-up examination after completed treatment for malignant neoplasm (principal); Z85.3 Personal history of malignant neoplasm of breast; F17.210 Nicotine dependence, cigarettes, uncomplicated; Z79.811 Long term (current) use of aromatase inhibitors; Z79.82 Long term (current) use of aspirin; Z79.899 Other long term (current) drug therapy; Z92.3 Personal history of irradiation; Z88.1 Allergy status to other antibiotic agents; Z88.2 Allergy status to sulfonamides; J30.89 Other allergic rhinitis ==